=== PATIENT | male | born 1960 | race Caucasian/White ===

== ENCOUNTER 2023-12-30 11:40 | Outpatient (CLI) | payer BC, SELFPAY ==
--- NOTE | 2023-12-30 12:54 | ECG_ITS ---
Measurements Intervals [place] Rate: 90 P: -3 VT: 181 QRS: 12 QRSD: 97 T: 80 QT: 343 QTc: 391 Interpretive Statements SINUS RHYTHM POOR R. PROGRESSION BORDERLINE ECG SEE SCANNED COPY FOR SIGNATURE MTDD
[2023-12-30 13:08] LABS: Basophils Absolute Auto 0.2 K/mm3 (0.0-0.1); Basophils Percent Auto 1.1 % (0.2-1.2); Eosinophils Absolute Auto 0.5 K/mm3 (0-0.3); Eosinophils Percent Auto 3.2 % (0-4.4); Hematocrit 43.9 % (42.0-52.0); Hemoglobin 14.9 g/dL (14.0-18.0); Immature Granulocyte Absolute 0.11 K/mm3 (0.00-0.031); Immature Granulocyte Percent A 0.7 % (0-0.5); Lymphocytes Absolute Auto 5.83 K/mm3 (0.9-3.2); Lymphocytes Percent Auto 38.9 % (18.3-44.2); Mean Corpuscular HGB Conc 33.9 g/dl (32-36); Mean Corpuscular Hemoglobin 29.9 pg (26-34); Mean Platelet Volume 9.7 fl (7.4-10.4); Monocytes Absolute Auto 1.3 K/mm3 (0.1-0.6); Monocytes Percent Auto 8.7 % (2.6-8.5); Neutrophils Absolute Auto 7.1 K/mm3 (1.3-6.7); Neutrophils Percent Auto 47.4 % (45.5-73.1); Platelet Count Result 337 k/mm3 (150-375); Red Blood Count 4.99 M/mm3 (4.6-6.20); Red Cell Distribution Width 13.6 % (11.5-14.5)
[2023-12-30 13:20] LABS: Albumin Level 4.8 g/dL (3.5-5.1)
[2023-12-30 13:23] LABS: Anion Gap 10 mmol/L (4-12); Blood Urea Nitrogen 25 mg/dL (9-20); Calcium 10.3 mg/dL (8.4-10.2); Carbon Dioxide 27 mmol/L (22-30); Chloride 99 mmol/L (98-107); Estimated Glomerular Filt Rate > 60; Glucose 191 mg/dL (65-110); Potassium 3.9 mmol/L (3.4-5.0); Sodium 136 mmol/L (137-145); Urine Cotinine NEGATIVE
[2023-12-30 13:33] LABS: Hemoglobin A1C 7.2 % (<5.7)
[2023-12-30 13:55] LABS: Atypical Lymphocytes Present; Platelet Estimate Adequate (Adequate); Schistocytes None Seen
== END 2023-12-30 11:41 | disposition home or self-care (01) ==
PROVIDERS: Anesthesiology; PCP Internal Medicine Endocrinology, Diabetes & Metabolism; Visit Provider Orthopaedic Surgery
DX: M17.12 Unilateral primary osteoarthritis, left knee (principal); E11.9 Type 2 diabetes mellitus without complications; Z01.818 Encounter for other preprocedural examination
CPT/HCPCS: 36415; 80048; 80307; 82040; 83036; 85025; 93005

== ENCOUNTER 2024-01-13 01:39 | Day surgery (SDC) | payer BC, SELFPAY ==
[2023-12-30 11:54] VITALS: BMI 36.9
--- NOTE | 2023-12-30 12:17 | PC.NURSE ---
Report to the Outpatient Waiting Room, entrance under the green pavilion located off [facility], at time ___0600____ on date ___01/13/24____. Planned Procedure Time: __729 . Time changes happen often and if your time is changed the preop area will call you the afternoon before. - You and your visitor will be asked to self-screen and do not enter if you have any COVID symptoms. - A mask is optional within the hospital at this time. Patients may have clear liquids (water, carbonated beverages, clear teas, apple juice) until 3 hours prior to surgery ( 4:30 AM)with a maximum of 20 ounces. - No food from midnight until time of surgery - Infants may have breast milk until 4 hours before surgery, formula 6 hours prior to surgery. - Children will be allowed to drink immediately following surgery. If applicable, please bring a bottle or sippy cup to assist with drinking. Juice, water, soda, and popsicles are readily available. For infants on formula, please bring formula the day of surgery. Pacifiers are allowed. Take the following medications with a SIP of water the morning of surgery: _AMLODIPINE DO NOT STOP ANY OF YOUR OTHER PRESCRIPTION MEDICATIONS PRIOR TO SURGERY ?EXCEPT THE FOLLOWING Medications to discontinue per physician _DICLOFENAC PER DR MANJARREZ. HOLD ALL VITAMINS AND SUPPLEMENTS 3 DAYS PREOP.LAST DOSE01/09/24____ Please no make-up, nail korean, hairspray, perfume, deodorant, or body powder the day of surgery. No jewelry (including any body piercings) or valuables the day of surgery, leave them at home. Please take a shower or bath the night before, or the morning of, surgery with an antibacterial soap. Wear comfortable, loose fitting clothing. Children are encouraged to wear pajamas. - Jewelry must be removed prior to entering the operating room. Rings and piercings that are not removed may be cut off. - The hospital will not accept responsibility for valuables. - Please leave all valuables, including medications, at home the day of surgery. If you are going home after surgery, a licensed flatbed driver must drive you home. - NO public transportation without another adult if you receive anesthesia. - We recommend that an adult stay with you for 24 hours following discharge. - We also recommend that you do not drive, make important decision, drink alcoholic beverages, or take any drugs that were not prescribed by your health care provider for at least 24 hours after your discharge jared. Follow any additional instructions given to you from your surgeon. If you or anyone in your household have experienced Covid symptoms in the past week, please notify your surgeon or the nurse liaison at the phone number below for possible testing. VERBAL AND WRITTEN instructions given to __PATIENT and asked if any additional questions and then verbalized understanding. Patient advised to call surgeon office or pre surgery nurse liaison [phone] if any additional questions.
[2023-12-30 12:39] VITALS: BP 156/99; PULSE 88; RESP 18; TEMP 36.6; O2SAT 97
--- NOTE | 2024-01-09 10:22 | PM.IMHP ---
H&P: HPI History of Present Illness Date/Time: 01/09/24 10:22 Chief Complaint: Patient has arthritis and pain left knee. He has failed conservative treatment. He would like to proceed with total knee arthroplasty on the left. Review of Systems Musculoskeletal: Musculoskeletal: Reports arthralgias, Reports joint swelling and Reports stiffness [facility] Past Medical History Medical History Diabetes Hyperlipidemia Hypertension Surgical History Surgical History History of tonsillectomy Family History Family History Mother Diabetes mellitus Hypertension Father CHF (congestive heart failure) Social History Social History (Updated 12/05/23 @ 10:43 by Saira Short CMA) Years smoked: 42 Smoking status: Former smoker Tobacco type: cigarettes Smoking end date: 11/30/23 Additional smoking assessment comments: DENIES ANY FORM OF TOBACCO USE Alcohol intake: never Substance use type: does not use Do You Feel Safe in your Home?: Yes Lack of Transportation: No Lack of Food: Never True Current Housing: I Have Housing Concerned About Future Housing: No Difficulty Paying Gas/Electric Bills: No Difficulty Paying for Meds: No Currently Unemployed: No Education: Trade/Vocational Certificate Difficulty w/ Childcare or Family Care: No Living arrangements: alone Occupation/Education: occupation Additional occupation/education comments: [employer] Spiritual care concerns: No Meds Home Medications and Allergies Home Medications Medication Instructions Recorded Confirmed Type amlodipine 5 mg tablet 5 mg PO BID 11/06/23 12/30/23 History ascorbic acid (vitamin C) 1,000 mg 1 g PO DAILY 11/06/23 12/30/23 History tablet calcium 600 mg-D3 20 mcg-magnesium 1 tablet PO TID 11/06/23 12/30/23 History 40 wg-mmwcut-zgbb-zinc chew tablet diclofenac sodium 75 mg 75 mg PO BID 11/06/23 12/30/23 History tablet,delayed release glimepiride 4 mg tablet 4 mg PO QAM 11/06/23 12/30/23 History metformin 1,000 mg tablet,extended 1,000 mg PO BID 11/06/23 12/30/23 History release 24hr (osmotic) valsartan 320 1 tablet PO DAILY 11/06/23 12/30/23 History mg-hydrochlorothiazide 25 mg tablet vitamin A-vitamin D3 5,000 1 cap PO DAILY 11/06/23 12/30/23 History unit-400 unit capsule vitamin B complex 1 cap PO DAILY 11/06/23 12/30/23 History vitamin E (dl, acetate) 45 mg (100 45 mg PO DAILY 11/06/23 12/30/23 History unit) capsule cjmeryf-rgvvwpavh-qutm 333 mg-133 1 tablet PO DAILY 12/30/23 12/30/23 History mg-8.3 mg tablet coQ10 (ubiquinol) 100 mg capsule 100 mg PO BID 12/30/23 12/30/23 History glucosamine sulf dipot 1 cap PO BID 12/30/23 12/30/23 History chlr,msm,chond 550 mg-C 30 mg-carlos 1 mg capsule (Glucosamine Chondroitin) vitamin D3 1,250 mcg (50,000 1 cap PO TID 12/30/23 12/30/23 History unit)-vitamin K2 200 mcg capsule Allergies Allergy/AdvReac Type Severity Reaction Status Date / Time No Known Allergies Allergy Verified 12/30/23 11:55 Exam Narrative: On exam he has motion from about 3-110 degrees. Varus deformity. Grinding crepitus and pain. He walks with an antalgic gait. Eyes: General: appearance normal, both eyes and all related structures Neck: Neck: supple Resp: Effort & Inspection: normal respiratory effort Cardio: Rate: regular rate Rhythm: regular rhythm Assessment and Plan Assessment and plan (1) Osteoarthritis of knees, bilateral: Code(s): M17.0 - Bilateral primary osteoarthritis of knee Status: Acute Assessment and Plan: Patient has significant arthritis of both knees. He has failed conservative treatment. A like to proceed with total knee arthroplasty on the left. I have discussed this with him risks lorenzo
[2024-01-13] VITALS (15 sets, daily range): BP systolic 119–162; BP diastolic 67–94; PULSE 81–104; RESP 12–22; TEMP 35.7–37.2; O2SAT 90–99
--- NOTE | ~2024-01-13 | XR_ITS ---
EXAMINATION: [id number] DATE: 01/13/2024 10:48 INDICATION: Postoperative evaluation following left total knee arthroplasty. TECHNIQUE: Anteroposterior and lateral views of the left knee were obtained. COMPARISON: 11/06/2023 FINDINGS: total knee arthroplasty with patellar resurfacing appears well seated and in near anatomic alignment. No fractures identified. Midline anterior skin sarah and expected postoperative subcutaneous and intra-articular gas. Unchanged small heterotopic ossicle in the subcutaneous fat anterior to the uppe r pole of the patella. IMPRESSION: 1. Left total knee arthroplasty, negative for postoperative purposes. Reviewed, dictated and finalized at location A.
[2024-01-13] MEDS: ACETAMINOPHEN 500 MG TABLET 1000 MG PO (06:24)
[2024-01-13] MEDS: LACTATED RINGERS 1,000 ML 30 ML IV CONT ×2 (06:36→10:29)
[2024-01-13 06:42] LABS: Glucose Point of Care 201 mg/dl (65-105)
--- NOTE | 2024-01-13 06:59 | WPDHPUPDATE1 ---
History and Physical Update Update Date/Time: 01/13/24 06:59 History and Physical has been reviewed, including an updated exam of the patient. There are NO changes in the patient's condition. Risks, benefits, and alternatives have been discussed and questions answered. Patient agrees to proceed with procedure.
[2024-01-13] MEDS: TRANEXAMIC ACID 1,000MG/ISO100 1,000 MG/100 ML BAG 200 MG IVPB (07:07)
--- NOTE | 2024-01-13 07:30 | WPDANESEPPF ---
Anes - Initial Pre Proc Eval Procedure: Operation Date: 01/13/24 07:30 Proposed Procedures p Left Total Knee Arthroplasty - Robert Grace MD Date/Time: 01/13/24 07:30 Surgeon: Robert Grace MD Pre Op Diagnosis: oa left knee Patient Data Age: 63 Gender: M Height: 1.78 m Weight: 116.1 kg Last Vital Signs Temp 96.3 F L 01/13/24 06:53 Pulse 103 H 01/13/24 06:53 Resp 16 01/13/24 06:53 BP 162/94 H 01/13/24 06:53 Pulse Ox 95 01/13/24 06:53 O2 Del Method Room Air 01/13/24 06:53 Allergies Allergy/AdvReac Type Severity Reaction Status Date / Time No Known Allergies Allergy Verified 01/13/24 06:10 Home Medications Medication Instructions Recorded Confirmed Type amlodipine 5 mg tablet 5 mg PO BID 11/06/23 01/13/24 History ascorbic acid (vitamin C) 1,000 mg 1 g PO DAILY 11/06/23 01/13/24 History tablet calcium 600 mg-D3 20 mcg-magnesium 1 tablet PO TID 11/06/23 01/13/24 History 40 gl-dpnsew-kymm-zinc chew tablet diclofenac sodium 75 mg 75 mg PO BID 11/06/23 01/13/24 History tablet,delayed release glimepiride 4 mg tablet 4 mg PO QAM 11/06/23 01/13/24 History metformin 1,000 mg tablet,extended 1,000 mg PO BID 11/06/23 01/13/24 History release 24hr (osmotic) valsartan 320 1 tablet PO DAILY 11/06/23 01/13/24 History mg-hydrochlorothiazide 25 mg tablet vitamin A-vitamin D3 5,000 1 cap PO DAILY 11/06/23 01/13/24 History unit-400 unit capsule vitamin B complex 1 cap PO DAILY 11/06/23 01/13/24 History vitamin E (dl, acetate) 45 mg (100 45 mg PO DAILY 11/06/23 01/13/24 History unit) capsule gvihqhq-sgskzbgqh-bnci 333 mg-133 1 tablet PO DAILY 12/30/23 01/13/24 History mg-8.3 mg tablet coQ10 (ubiquinol) 100 mg capsule 100 mg PO BID 12/30/23 01/13/24 History glucosamine sulf dipot 1 cap PO BID 12/30/23 01/13/24 History chlr,msm,chond 550 mg-C 30 mg-carlos 1 mg capsule (Glucosamine Chondroitin) vitamin D3 1,250 mcg (50,000 1 cap PO TID 12/30/23 01/13/24 History unit)-vitamin K2 200 mcg capsule rivaroxaban 10 mg tablet (Xarelto) 10 mg PO DAILY PE prophylaxis s/p 01/10/24 Rx total joint replacement 10 days #10 tabs Laboratory Tests 01/13/24 01/13/24 06:39 07:08 POC Capillary Glucose 201 H mg/dl (65-105) Blood Type Pending Antibody Screen Pending Patient hx anesthesia problems: none Family hx anesthesia problems: none Results Review: All pre-operative results and documents have been reviewed as part of the pre-operative evaluation. [facility] Past Medical History Medical History Diabetes Hyperlipidemia Hypertension Surgical History Surgical History History of tonsillectomy Family History Family History Mother Diabetes mellitus Hypertension Father CHF (congestive heart failure) Social History Social History Years smoked: 42 Smoking status: Former smoker Tobacco type: cigarettes Smoking end date: 11/30/23 Additional smoking assessment comments: DENIES ANY FORM OF TOBACCO USE Alcohol intake: never Substance use type: does not use Do You Feel Safe in your Home?: Yes Lack of Transportation: No Lack of Food: Never True Current Housing: I Have Housing Concerned About Future Housing: No Difficulty Paying Gas/Electric Bills: No Difficulty Paying for Meds: No Currently Unemployed: No Education: Trade/Vocational Certificate Difficulty w/ Childcare or Family Care: No Living arrangements: alone Occupation/Education: occupation Additional occupation/education comments: [employer] Spiritual care concerns: No Anes - Eval Final PreProcedure Day of Procedure 01/13/24 07:30 Patient weight: normal Heart: r
--- NOTE | 2024-01-13 07:31 | WPDANESPNB ---
Anes - Peripheral Nerve Block Date/Time: 01/13/24 07:31 I have discussed with the patient/family/POA the placement of a peripheral nerve block for post-operative pain management, including associated risks, benefits, complications, and side effects. Alternative methods of post-operative analgesia were detailed. Questions were solicited and answers provided to the satisfaction of the patient/family/POA. Time-Out: A pre-procedural Time-Out was completed immediately before starting the procedure and confirmed: Patient Identification, Site, Procedure, Patient Position and the Availability of Requisite Equipment. Clinical Indications: Acute post-operative pain management requested by the operative surgeon. Nerve Block Insertion Note Anes-nerve block: adductor canal left Patient position: supine Skin prep: chlorhexidine Needle: 22 gauge, stimulating, insulated echogenic needle. Needle length: 80 mm Technique: ultrasound Injectate: other (Bupiv 0.5% 30 mls. ) Observations: tolerated well Complications: none Procedure start time:: 724 Procedure end time:: 728
[2024-01-13] MEDS: ceFAZolin 2 GM/D5W 50 ML 2 GM/50 ML BAG IVPB ×3 (07:32→23:46)
[2024-01-13] MEDS: SODIUM CHLORIDE 0.9% IV 37.7 ML, MORPHINE SULFATE INJ (*CRX) 2 MG, ROPivacaine HCL 1% 2... INFILTRATE (08:12)
--- NOTE | 2024-01-13 10:00 | P.OP_ITS ---
Procedure Note - Detailed Date of Procedure 01/13/24 Pre-op Diagnosis Osteoarthritis left knee Post-op Diagnosis Same Procedure Performed LEFT total knee arthroplasty Surgeon Robert Grace MD Anesthesia General Findings Fixed deformity and arthritis Description of Procedure The patient was brought to operating room #9. A general anesthetic was administered. Placed on the operating table and sterilely prepped and draped in usual manner. A longitudinal incision was made. Tourniquet inflated to 300 mmHg for a total of 90 minutes. Dissection was carried down to the fascia. Medial parapatellar incision was made and the patella subluxated laterally. P atella cut from 25 to 16 mm and sized for a 34 mm button. The tibia was cut perpendicular to the long axis and femur cut in 5 degrees of valgus. Because of the fixed varus deformity and significant malalignment medial release was done. Went down at least a centimeter and a half medially all way to the posterior medial aspect the tibia. I also osteotomized some of the medial tibial plateau. A 65mm femur trialed. 67 tibia was felt to fit the best. The soft tissues balanced, hemostasis obtained. All [address], 67 tibia, 65 femur, 34 mm patella. At this point he tended to open more laterally than the trials had initially indicated so I removed the femur placed a posterior stabilized femur. He was then reduced with a 10. Liner stabilized plus. And 10 stabilized plus mm poly. Motion was 0-125 degrees with good stability in both flexion and extension. The wound was closed with #2 Vicryl, 2-0 Vicryl and sarah. [employer] Estimated Blood Loss 200 Drains No Packing No Pathology None sent Complications No immediate complications Condition Stable Disposition PACU [facility] Billing Surgery - Charge Forward: Surgery Billing (92091 Total Knee)
[2024-01-13 10:43] LABS: Glucose Point of Care 246 mg/dl (65-105)
[2024-01-13] MEDS: fentaNYL CITRATE INJ (*CRX) 100 MCG/2 ML VIAL 25 MCG IV PUSH ×8 (10:50→11:45)
[2024-01-13] MEDS: INSULIN HUMAN REGULAR (*BKC) 100 UNITS/ML SUB-Q (10:55)
[2024-01-13] MEDS: oxyCODONE HCL (*CRX) 5 MG TAB IR PO (11:32)
--- NOTE | 2024-01-13 11:57 | ADMGEN ---
This patient, Paul Mireles, was admitted to -. Patient/family oriented to hospital policies and general routines including ID bracelet, bed and alarms, visiting hours, pain management, procedures, bathroom and other care routines, personal items, smoking policy, room service/diet, and visiting hours. Information on how to activate the Rapid Response Team has been discussed. Patient/Family are encouraged to report perceived risks to care and to ask questions if they do not understand what they are told or what they should do.
[2024-01-13] MEDS: SODIUM CHLORIDE 0.9% IV 1,000 ML 125 ML IV CONT (12:17)
[2024-01-13] MEDS: amLODIPine BESYLATE 5 MG TABLET PO (16:58)
[2024-01-13] MEDS: CELECOXIB 200 MG CAPSULE PO (16:58)
[2024-01-13] MEDS: RIVAROXABAN 10 MG TABLET PO (16:59)
[2024-01-13] MEDS: SENNA/DOCUSATE SODIUM TABLET 2 TAB PO (16:59)
[2024-01-13] MEDS: HYDROcodone/acetaminophen (*CRX) 7.5-325 MG TABLET 1 TAB PO (16:59)
[2024-01-13 17:00] LABS: Glucose Point of Care 186 mg/dl (65-105)
[2024-01-13] MEDS: metFORMIN HCL XR 500 MG TAB.SR.24H 1000 MG PO (17:21)
[2024-01-13] MEDS: FAMOTIDINE 20 MG TABLET PO (20:08)
[2024-01-13] MEDS: HYDROcodone/acetaminophen (*CRX) 5-325 MG TABLET 1 TAB PO (20:08)
[2024-01-13 20:29] LABS: Glucose Point of Care 223 mg/dl (65-105)
[2024-01-14] MEDS: CYCLOBENZAPRINE HCL 10 MG TABLET PO (00:27)
[2024-01-14] MEDS: HYDROcodone/acetaminophen (*CRX) 7.5-325 MG TABLET 1 TAB PO (00:27)
[2024-01-14 01:36] VITALS: BP 157/79; PULSE 100; RESP 26; TEMP 36.7; O2SAT 96
[2024-01-14 05:00] VITALS: BP 182/88
[2024-01-14 05:15] VITALS: BP 182/88; PULSE 106; RESP 16; TEMP 36.9; O2SAT 96
[2024-01-14 05:38] LABS: Basophils Absolute Auto 0.1 K/mm3 (0.0-0.1); Basophils Percent Auto 0.5 % (0.2-1.2); Eosinophils Percent Auto 0.1 % (0-4.4); Hemoglobin 12.1 g/dL (14.0-18.0); Immature Granulocyte Absolute 0.05 K/mm3 (0.00-0.031); Immature Granulocyte Percent A 0.4 % (0-0.5); Lymphocytes Absolute Auto 1.83 K/mm3 (0.9-3.2); Lymphocytes Percent Auto 14.2 % (18.3-44.2); Mean Corpuscular HGB Conc 33.6 g/dl (32-36); Mean Corpuscular Hemoglobin 30.3 pg (26-34); Mean Corpuscular Volume 90.2 fl (80-100); Mean Platelet Volume 9.9 fl (7.4-10.4); Monocytes Absolute Auto 1.5 K/mm3 (0.1-0.6); Monocytes Percent Auto 11.5 % (2.6-8.5); Neutrophils Absolute Auto 9.5 K/mm3 (1.3-6.7); Neutrophils Percent Auto 73.3 % (45.5-73.1); Platelet Count Result 268 k/mm3 (150-375); Red Blood Count 3.99 M/mm3 (4.6-6.20); Red Cell Distribution Width 13.6 % (11.5-14.5); White Blood Count 12.9 K/mm3 (4.5-10.0)
[2024-01-14 05:47] LABS: Anion Gap 5 mmol/L (4-12); Blood Urea Nitrogen 18 mg/dL (9-20); Calcium 8.8 mg/dL (8.4-10.2); Carbon Dioxide 26 mmol/L (22-30); Chloride 99 mmol/L (98-107); Estimated CRCL calculation 86 ml/min; Estimated Glomerular Filt Rate > 60; Glucose 235 mg/dL (65-110); Potassium 4.2 mmol/L (3.4-5.0); Sodium 130 mmol/L (137-145)
[2024-01-14] MEDS: hydrALAZINE HCL 20 MG/ML VIAL 10 MG IV PUSH (05:47)
[2024-01-14] MEDS: HYDROcodone/acetaminophen (*CRX) 5-325 MG TABLET 1 TAB PO ×2 (05:49→08:39)
--- NOTE | 2024-01-14 06:41 | PM.PNORT ---
Progress Note: A&P Assessment and Plan (1) Osteoarthritis of knees, bilateral: Code(s): M17.0 - Bilateral primary osteoarthritis of knee Status: Acute Assessment and Plan: Patient is status post knee replacement left. Overall he is doing well. He had a large preoperative contracture before surgery. About 15 degree going to be difficult to get it all the way street he did surgery for obstructive release which and hard. On he can be dismissed today I will see him back weeks. (2) History of knee replacement procedure of left knee: Code(s): Z96.652 - Presence of left artificial knee joint Status: Acute Subjective Subjective Date/Time Seen: 01/14/24 06:41 Post Op day: 1 Principal diagnosis: Left total knee arthroplasty for osteoarthritis left knee Review of Systems Musculoskeletal: Musculoskeletal: Reports arthralgias, Reports joint swelling and Reports stiffness Exam Narrative: Patient is wiggling his toes. He is able to bear weight on his knee. He holds it lacking about 10? of straightening. I told him I got full extension during surgery. Objective Data Vital Signs Vital Signs: Vital Signs - 24 hr 01/13/24 06:53 01/13/24 10:29 01/13/24 10:43 Temperature 96.3 F L 97.3 F L Pulse Rate 103 H 104 H 100 Respiratory Rate 16 22 H 15 Blood Pressure 162/94 H 151/89 H 137/67 Pulse Oximetry 95 99 94 Oxygen Delivery Room Air Simple Face Mask Room Air Oxygen Flow Rate 10 01/13/24 10:45 01/13/24 11:00 01/13/24 11:15 Temperature Pulse Rate 96 83 88 Respiratory Rate 18 12 18 Blood Pressure 149/73 H 145/70 H 128/72 Pulse Oximetry 94 90 98 Oxygen Delivery Room Air Nasal Cannula Nasal Cannula Oxygen Flow Rate 2 2 01/13/24 11:30 01/13/24 11:45 01/13/24 12:20 Temperature Pulse Rate 91 84 Respiratory Rate 21 H 18 Blood Pressure 141/72 H 134/76 Pulse Oximetry 98 98 98 Oxygen Delivery Nasal Cannula Nasal Cannula Nasal Cannula Oxygen Flow Rate 2 2 2 01/13/24 11:51 01/13/24 12:06 01/13/24 12:36 Temperature 97.5 F L 97.1 F L 98.1 F Pulse Rate 88 81 85 Respiratory Rate 16 16 16 Blood Pressure 135/73 138/74 136/71 Pulse Oximetry 96 95 96 Oxygen Delivery Oxygen Flow Rate 01/13/24 13:36 01/13/24 18:19 01/13/24 20:25 Temperature 97.8 F 99.0 F 97.1 F L Pulse Rate 89 96 96 Respiratory Rate 16 16 16 Blood Pressure 119/94 H 151/77 H 147/79 H Pulse Oximetry 95 96 96 Oxygen Delivery Oxygen Flow Rate 01/13/24 20:00 01/14/24 01:36 01/14/24 05:00 Temperature 98.1 F Pulse Rate 100 Respiratory Rate 26 H Blood Pressure 157/79 H 182/88 H Pulse Oximetry 96 Oxygen Delivery Room Air Oxygen Flow Rate 01/14/24 05:15 Temperature 98.4 F Pulse Rate 106 H Respiratory Rate 16 Blood Pressure 182/88 H Pulse Oximetry 96 Oxygen Delivery Oxygen Flow Rate Intake/Output Intake/Output: Intake & Output 01/11/24 01/12/24 01/13/24 01/14/24 23:59 23:59 23:59 23:59 Intake Total 1540 600 Output Total 500 Balance 1540 100 Meds/Results Medications: Active Medications Generic Name Dose Route Start Last Admin Trade Name Freq PRN Reason Stop Dose Admin Hydrocodone Bitart/Acetaminophen 1 tab 01/13/24 11:51 01/14/24 00:27 Hydrocodone/Acetaminophen (*Crx) 7.5-325 Mg Tablet PO 1 tab Q6H PRN Administration Pain Rated 7-10 Hydrocodone Bitart/Acetaminophen 1 tab 01/13/24 11:51 01/14/24 05:49 Hydrocodone/Acetaminophen (*Crx) 5-325 Mg Tablet PO 1 tab Q4H PRN Administration Pain Rated 4-6 Amlodipine Besylate 5 mg 01/13/24 17:00 01/13/24 16:58 Amlodipine Besylate 5 Mg Tablet PO 5 mg BID BRADLEY Administration Celecoxib 200 mg 01/13/24 17:00 01/13/24 16:58 Celecoxib 200 Mg Capsule PO 200 mg BIDWM BRADLEY Administration Cyclobenzaprine HCl 10 mg 01/13/24 11:51 01/14/24 00:27 Cyclobenzaprine Hcl 10 Mg Tablet PO 10 mg Q8H PRN Administration Spasms Diphenhydramine HCl 25 mg
--- NOTE | 2024-01-14 06:43 | PM.DS ---
DS: Admitting Diagnosis Discharge Date 01/13/24 Admitting Diagnosis Osteoarthritis left knee admitted for total knee arthroplasty. DS: Discharge Diagnosis Discharge Diagnosis (1) History of knee replacement procedure of left knee: Code(s): Z96.652 - Presence of left artificial knee joint Status: Acute (2) Osteoarthritis of knees, bilateral: Code(s): M17.0 - Bilateral primary osteoarthritis of knee Status: Acute DS: Summary Hospital Course Hospital Course: Patient underwent total knee arthroplasty for left knee arthritis. He had significant varus deformity and a flexion contraction. I was able to realign all the problems during surgery. However in bed today, he's holding his leg in about 10? of lacking about 10? of extension. I told him that he really needs to push at the maintain is straightening. I will see him back in 2 weeks. Status at Discharge Functional status at discharge: uses cane/walker Time Spent with Patient Time attestation: Total time spent providing and/or coordinating discharge services: Exam Narrative: Neurologically the patient appears to be intact. A hold his leg in about 10? of flexion. He is able to bear weight on his knee. DS: Data Data Completed and Pending Labs on day of discharge: Labs from last 24 hours 01/14/24 01/13/24 01/13/24 05:06 20:24 16:58 WBC 12.9 H RBC 3.99 L Hgb 12.1 L Hct 36.0 L MCV 90.2 MCH 30.3 MCHC 33.6 RDW 13.6 Plt Count 268 MPV 9.9 Immature Gran % (Auto) 0.4 Neut % (Auto) 73.3 H Lymph % (Auto) 14.2 L [place] % (Auto) 11.5 H Eos % (Auto) 0.1 Baso % (Auto) 0.5 Lymph # (Auto) 1.83 [place] # (Auto) 1.5 H Eos # (Auto) 0.0 Baso # (Auto) 0.1 Abs Immat Gran (auto) 0.05 H Absolute Neuts (auto) 9.5 H Absolute Nucleated RBC 0.000 Nucleated RBC % 0.0 Sodium 130 L Potassium 4.2 Chloride 99 Carbon Dioxide 26 Anion Gap 5 BUN 18 Creatinine 1.00 Estim Creat Clear Calc 86 Estimated GFR > 60 Glucose 235 H POC Capillary Glucose 223 H 186 H Calcium 8.8 Blood Type Antibody Screen 01/13/24 01/13/24 10:39 07:08 WBC RBC Hgb Hct MCV MCH MCHC RDW Plt Count MPV Immature Gran % (Auto) Neut % (Auto) Lymph % (Auto) [place] % (Auto) Eos % (Auto) Baso % (Auto) Lymph # (Auto) [place] # (Auto) Eos # (Auto) Baso # (Auto) Abs Immat Gran (auto) Absolute Neuts (auto) Absolute Nucleated RBC Nucleated RBC % Sodium Potassium Chloride Carbon Dioxide Anion Gap BUN Creatinine Estim Creat Clear Calc Estimated GFR Glucose POC Capillary Glucose 246 H Calcium Blood Type A Positive Antibody Screen Negative Discharge Plan Discharge Patient Disposition: Home, Self-Care Discharge Instructions: Dr. Robert Grace M.D [address] [place] [id number] POST-OPERATIVE DISCHARGE INSTRUCTIONS TOTAL KNEE ARTHROPLASTY 1. When resting, do not rest in the chair.When resting, lie on your back, with back flat on the couch or bed, with leg elevated above heart to minimize swelling. You may put a pillow under your head. . Significant swelling could indicate a blood clot and if this occurs call the office (or go to the ER) to have a venous ultrasound. Therefore, do not rest in a chair. 2. At least five times a day spend several minutes stretching your knee into flexion while sitting in the chair and also stretching your knee out straight The abilities to bend your knee fulling and straighten your knee fully are two most important knee functions to focus on during your recovery. 3. It is ok to sit in chair to eat, use the toilet and receive a guest and to do your stretching exercises, but, sitting in a chair will cause your leg to swell. Therefore, avoid additional time sitting in the chair. and don't rest in the chair. 4. Wound Care:
[2024-01-14 06:44] VITALS: BP 166/87
[2024-01-14] MEDS: CELECOXIB 200 MG CAPSULE PO (08:37)
[2024-01-14] MEDS: ceFAZolin 2 GM/D5W 50 ML 2 GM/50 ML BAG IVPB (08:37)
[2024-01-14] MEDS: amLODIPine BESYLATE 5 MG TABLET PO (08:37)
[2024-01-14] MEDS: FAMOTIDINE 20 MG TABLET PO (08:38)
[2024-01-14] MEDS: VALSARTAN 160 MG TABLET 320 MG PO (08:38)
[2024-01-14] MEDS: metFORMIN HCL XR 500 MG TAB.SR.24H 1000 MG PO (08:38)
[2024-01-14] MEDS: GLIMEPIRIDE 2 MG TABLET 4 MG PO (08:38)
[2024-01-14] MEDS: hydroCHLOROthiazide 25 MG TABLET PO (08:38)
[2024-01-14] MEDS: VITAMIN E 100 UNIT CAPSULE PO (08:39)
[2024-01-14] MEDS: VITAMIN B COMPLEX CAPSULE 1 CAP PO (08:42)
[2024-01-14] MEDS: ASCORBIC ACID 500 MG TABLET 1000 MG PO (08:42)
[2024-01-14] MEDS: INSULIN ASPART (*BKC) 100 UNITS/ML SUB-Q (08:43)
--- NOTE | 2024-01-14 08:55 | P.PNAN_ITS ---
Anes - Prog Note Post-Op Date/Time: 01/14/24 08:55 Cardiovascular status: normal Respiratory status: normal Airway patency: baseline Mental status: baseline Post-Op hydration status: normal Vital Signs: Last Vital Signs Temp 36.9 C 01/14/24 05:15 Pulse 106 H 01/14/24 05:15 Resp 16 01/14/24 05:15 BP 166/87 H 01/14/24 06:44 Pulse Ox 96 01/14/24 05:15 O2 Del Method Room Air 01/13/24 20:00 O2 Flow Rate 2 01/13/24 12:20 Pain Score (VAS): 12/31 I/O: Intake & Output 01/13/24 01/14/24 01/14/24 23:59 07:59 15:59 Intake Total 1390 600 240 Output Total 500 Balance 1390 100 240 Laboratory Tests 01/14/24 05:06 01/14/24 05:06 01/13/24 01/13/24 01/13/24 10:39 16:58 20:24 WBC RBC Hgb Hct MCV MCH MCHC RDW Plt Count MPV Immature Gran % (Auto) Neut % (Auto) Lymph % (Auto) [place] % (Auto) Eos % (Auto) Baso % (Auto) Lymph # (Auto) [place] # (Auto) Eos # (Auto) Baso # (Auto) Abs Immat Gran (auto) Absolute Neuts (auto) Absolute Nucleated RBC Nucleated RBC % Sodium Potassium Chloride Carbon Dioxide Anion Gap BUN Creatinine Estim Creat Clear Calc Estimated GFR Glucose POC Capillary Glucose 246 H 186 H 223 H Calcium 01/14/24 05:06 WBC 12.9 H RBC 3.99 L Hgb 12.1 L Hct 36.0 L MCV 90.2 MCH 30.3 MCHC 33.6 RDW 13.6 Plt Count 268 MPV 9.9 Immature Gran % (Auto) 0.4 Neut % (Auto) 73.3 H Lymph % (Auto) 14.2 L [place] % (Auto) 11.5 H Eos % (Auto) 0.1 Baso % (Auto) 0.5 Lymph # (Auto) 1.83 [place] # (Auto) 1.5 H Eos # (Auto) 0.0 Baso # (Auto) 0.1 Abs Immat Gran (auto) 0.05 H Absolute Neuts (auto) 9.5 H Absolute Nucleated RBC 0.000 Nucleated RBC % 0.0 Sodium 130 L Potassium 4.2 Chloride 99 Carbon Dioxide 26 Anion Gap 5 BUN 18 Creatinine 1.00 Estim Creat Clear Calc 86 Estimated GFR > 60 Glucose 235 H POC Capillary Glucose Calcium 8.8 Post-procedural complaints: none Patient Feedback: Patient satisfied with anesthetic care.
[2024-01-14 16:22] LABS: Glucose Point of Care 254 mg/dl (65-105)
== END 2024-01-14 12:05 | disposition home or self-care (01) ==
LOC: ANHSURGERY 05:51 → ANH2MED 12:09
PROVIDERS: PCP Internal Medicine Endocrinology, Diabetes & Metabolism; Visit Provider Orthopaedic Surgery
PROC: (CPT 27447; principal; 2024-01-13 07:30)
DX: M17.12 Unilateral primary osteoarthritis, left knee (principal); G89.18 Other acute postprocedural pain; I10 Essential (primary) hypertension; E11.9 Type 2 diabetes mellitus without complications; E78.5 Hyperlipidemia, unspecified; Z87.891 Personal history of nicotine dependence; Z79.84 Long term (current) use of oral hypoglycemic drugs
CPT/HCPCS: 27447; 64447; 36415; 73560; 80048; 82948; 85025; 86850; 86900; 86901; 97110; 97116; 97161; 97165; 97530; 97535; A9270; C1713; C1776; J0171; J0330; J0360; J0690; J1170; J1815; J1885; J2250; J2270; J2371; J2405; J2704; J2795; J3010; J7030; J7120

== ENCOUNTER 2024-04-08 12:10 | Outpatient (CLI) | payer BC, OTHER, SELFPAY ==
[2024-04-08 13:05] LABS: Basophils Absolute Auto 0.1 K/mm3 (0.0-0.1); Basophils Percent Auto 0.7 % (0.2-1.2); Eosinophils Absolute Auto 0.4 K/mm3 (0-0.3); Eosinophils Percent Auto 3.8 % (0-4.4); Hematocrit 44.3 % (42.0-52.0); Hemoglobin 14.8 g/dL (14.0-18.0); Immature Granulocyte Absolute 0.05 K/mm3 (0.00-0.031); Immature Granulocyte Percent A 0.4 % (0-0.5); Lymphocytes Absolute Auto 5.07 K/mm3 (0.9-3.2); Lymphocytes Percent Auto 43.3 % (18.3-44.2); Mean Corpuscular HGB Conc 33.4 g/dl (32-36); Mean Corpuscular Hemoglobin 29.8 pg (26-34); Mean Corpuscular Volume 89.3 fl (80-100); Mean Platelet Volume 9.8 fl (7.4-10.4); Monocytes Absolute Auto 1.1 K/mm3 (0.1-0.6); Monocytes Percent Auto 9.3 % (2.6-8.5); Neutrophils Percent Auto 42.5 % (45.5-73.1); Platelet Count Result 312 k/mm3 (150-375); Red Blood Count 4.96 M/mm3 (4.6-6.20); Red Cell Distribution Width 12.8 % (11.5-14.5); White Blood Count 11.7 K/mm3 (4.5-10.0)
[2024-04-08 13:15] LABS: Albumin Level 4.7 g/dL (3.5-5.1)
[2024-04-08 13:19] LABS: Anion Gap 12 mmol/L (4-12); Blood Urea Nitrogen 26 mg/dL (9-20); Calcium 9.3 mg/dL (8.4-10.2); Carbon Dioxide 27 mmol/L (22-30); Chloride 100 mmol/L (98-107); Estimated Glomerular Filt Rate > 60; Glucose 302 mg/dL (65-110); Potassium 3.8 mmol/L (3.4-5.0); Sodium 139 mmol/L (137-145)
[2024-04-08 13:25] LABS: Urine Cotinine NEGATIVE
[2024-04-08 14:02] LABS: Hemoglobin A1C 8.1 % (<5.7)
== END 2024-04-08 12:11 | disposition home or self-care (01) ==
PROVIDERS: Anesthesiology; PCP Internal Medicine Endocrinology, Diabetes & Metabolism; Visit Provider Orthopaedic Surgery
DX: M17.11 Unilateral primary osteoarthritis, right knee (principal); E11.9 Type 2 diabetes mellitus without complications; Z01.818 Encounter for other preprocedural examination
CPT/HCPCS: 36415; 80048; 80307; 82040; 83036; 85025; 86850; 86900; 86901

== ENCOUNTER 2024-07-30 11:30 | Outpatient (CLI) | payer BC, SELFPAY ==
[2024-07-30 12:08] LABS: Basophils Absolute Auto 0.1 K/mm3 (0.0-0.1); Basophils Percent Auto 0.9 % (0.2-1.2); Eosinophils Absolute Auto 0.6 K/mm3 (0-0.3); Eosinophils Percent Auto 4.7 % (0-4.4); Hematocrit 48.6 % (42.0-52.0); Immature Granulocyte Absolute 0.05 K/mm3 (0.00-0.031); Immature Granulocyte Percent A 0.4 % (0-0.5); Lymphocytes Absolute Auto 4.37 K/mm3 (0.9-3.2); Mean Corpuscular HGB Conc 32.9 g/dl (32-36); Mean Corpuscular Hemoglobin 29.9 pg (26-34); Mean Corpuscular Volume 90.7 fl (80-100); Mean Platelet Volume 9.5 fl (7.4-10.4); Monocytes Absolute Auto 0.9 K/mm3 (0.1-0.6); Monocytes Percent Auto 7.4 % (2.6-8.5); Neutrophils Absolute Auto 5.9 K/mm3 (1.3-6.7); Neutrophils Percent Auto 49.6 % (45.5-73.1); Platelet Count Result 314 k/mm3 (150-375); Red Blood Count 5.36 M/mm3 (4.6-6.20); Red Cell Distribution Width 12.8 % (11.5-14.5); White Blood Count 11.8 K/mm3 (4.5-10.0)
[2024-07-30 12:16] LABS: Albumin Level 4.7 g/dL (3.5-5.1)
[2024-07-30 12:19] LABS: Anion Gap 10 mmol/L (4-12); Blood Urea Nitrogen 23 mg/dL (9-20); Calcium 9.1 mg/dL (8.4-10.2); Carbon Dioxide 27 mmol/L (22-30); Chloride 101 mmol/L (98-107); Estimated Glomerular Filt Rate > 60; Glucose 161 mg/dL (65-110); Sodium 138 mmol/L (137-145)
[2024-07-30 12:21] LABS: Urine Cotinine NEGATIVE
[2024-07-30 12:32] LABS: Hemoglobin A1C 6.9 % (<5.7)
[2024-07-30 13:21] LABS: MRSA (PCR) NOT DETECTED (NOT DETECTE)
== END 2024-07-30 11:31 | disposition home or self-care (01) ==
LOC: ANHSURGERY 11:34
PROVIDERS: Anesthesiology; PCP Internal Medicine Endocrinology, Diabetes & Metabolism; Visit Provider Orthopaedic Surgery
DX: M17.11 Unilateral primary osteoarthritis, right knee (principal); E11.9 Type 2 diabetes mellitus without complications; Z01.818 Encounter for other preprocedural examination
CPT/HCPCS: 36415; 80048; 80307; 82040; 83036; 85025; 86850; 86900; 86901; 87641

== ENCOUNTER 2024-08-10 00:25 | Day surgery (SDC) | payer BC, SELFPAY ==
--- NOTE | 2024-04-07 15:15 | PC.NURSE ---
Report to the Outpatient Waiting Room, entrance under the green pavilion located off [facility], at time _6:00 AM on date __04/13/24 . Planned Procedure Time: __7:30 AM . Time changes happen often and if your time is changed the preop area will call you the afternoon before. - You and your visitor will be asked to self-screen and do not enter if you have any COVID symptoms. - A mask is optional within the hospital at this time. Patients may have clear liquids (water, carbonated beverages, clear teas, apple juice) until 3 hours prior to surgery( 4:30 AM) with a maximum of 20 ounces. - No food from midnight until time of surgery - Infants may have breast milk until 4 hours before surgery, infant formula 6 hours prior to surgery. - Children will be allowed to drink immediately following surgery. If applicable, please bring a bottle or sippy cup to assist with drinking. Juice, water, soda, and popsicles are readily available. For infants on formula, please bring formula the day of surgery. Pacifiers are allowed. Take the following medications with a SIP of water the morning of surgery: __AMLODIPINE DO NOT STOP ANY OF YOUR OTHER PRESCRIPTION MEDICATIONS PRIOR TO SURGERY ?EXCEPT THE FOLLOWING Medications to discontinue per physician _PT STATES HOLD ALL VITAMINS AND SUPPLEMENTS 5 DAYS PRE OP PER DR MANJARREZ. LAST DOSE 04/05/24. HOLD DICLOFENAC 3 DAYS PRE OP PER DR MANJARREZ LAST DOSE 04/09/24 Please no make-up, nail ecuadorean, hairspray, perfume, deodorant, or body powder the day of surgery. No jewelry (including any body piercings) or valuables the day of surgery, leave them at home. Please take a shower or bath the night before, or the morning of, surgery with an antibacterial soap. Wear comfortable, loose fitting clothing. Children are encouraged to wear pajamas. - Jewelry must be removed prior to entering the operating room. Rings and piercings that are not removed may be cut off. - The hospital will not accept responsibility for valuables. - Please leave all valuables, including medications, at home the day of surgery. If you are going home after surgery, a licensed seasonal driver must drive you home. - NO public transportation without another adult if you receive anesthesia. - We recommend that an adult stay with you for 24 hours following discharge. - We also recommend that you do not drive, make important decision, drink alcoholic beverages, or take any drugs that were not prescribed by your health care provider for at least 24 hours after your discharge time. Follow any additional instructions given to you from your surgeon. If you or anyone in your household have experienced Covid symptoms in the past week, please notify your surgeon or the nurse liaison at the phone number below for possible testing. Telephone instructions given to _PATIENT and asked if any additional questions and then verbalized understanding. Patient advised to call surgeon office or pre surgery nurse liaison [phone] if any additional questions.
[2024-04-07 15:26] VITALS: BMI 36.6
--- NOTE | 2024-04-09 08:30 | P.HP_ITS ---
H&P: HPI History of Present Illness Date/Time: 04/09/24 08:30 Chief Complaint: Degenerative osteoarthritis right knee. Narrative: Patient has osteoarthritis right knee. He has failed conservative treatment like to consider knee replacement surgery. Review of Systems Musculoskeletal: Musculoskeletal: Reports arthralgias, Reports joint swelling and Reports stiffness [facility] Past Medical History Medical History Diabetes Hyperlipidemia Hypertension Surgical History Surgical History (Updated 02/25/24 @ 10:23 by Angeles Andrew CMA) History of left knee replacement History of tonsillectomy Family History Family History Mother Diabetes mellitus Hypertension Father CHF (congestive heart failure) Social History Social History Years smoked: 43 Smoking status: Former smoker Tobacco type: cigarettes Smoking end date: 11/30/23 Additional smoking assessment comments: DENIES ANY FORM OF TOBACCO USE Alcohol intake: never Substance use type: does not use Do You Feel Safe in your Home?: Yes Lack of Transportation: No Lack of Food: Never True Current Housing: I Have Housing Concerned About Future Housing: No Difficulty Paying Gas/Electric Bills: No Difficulty Paying for Meds: No Currently Unemployed: No Education: Trade/Vocational Certificate Difficulty w/ Childcare or Family Care: No Living arrangements: alone Occupation/Education: occupation Additional occupation/education comments: [employer] Gender identity (if verbalized by the patient): Male Spiritual care concerns: No Meds Home Medications and Allergies Home Medications Medication Instructions Recorded Confirmed Type amlodipine 5 mg tablet 5 mg PO BID 11/06/23 04/07/24 History ascorbic acid (vitamin C) 1,000 mg 1 g PO DAILY 11/06/23 04/07/24 History tablet calcium 600 mg-D3 20 mcg-magnesium 1 tablet PO TID 11/06/23 04/07/24 History 40 lt-srdphp-lbds-zinc chew tablet diclofenac sodium 75 mg 75 mg PO BID 11/06/23 04/07/24 History tablet,delayed release glimepiride 4 mg tablet 4 mg PO QAM 11/06/23 04/07/24 History metformin 1,000 mg tablet,extended 1,000 mg PO BID 11/06/23 04/07/24 History release 24hr (osmotic) valsartan 320 1 tablet PO DAILY 11/06/23 04/07/24 History mg-hydrochlorothiazide 25 mg tablet vitamin A-vitamin D3 5,000 1 cap PO DAILY 11/06/23 04/07/24 History unit-400 unit capsule vitamin B complex 1 cap PO DAILY 11/06/23 04/07/24 History vitamin E (dl, acetate) 45 mg (100 45 mg PO DAILY 11/06/23 04/07/24 History unit) capsule fcozwoq-fftsyyqnc-utcg 333 mg-133 1 tablet PO DAILY 12/30/23 04/07/24 History mg-8.3 mg tablet coQ10 (ubiquinol) 100 mg capsule 100 mg PO BID 12/30/23 04/07/24 History glucosamine sulf dipot 1 cap PO BID 12/30/23 04/07/24 History chlr,msm,chond 550 mg-C 30 mg-carlos 1 mg capsule (Glucosamine Chondroitin) vitamin D3 1,250 mcg (50,000 1 cap PO TID 12/30/23 04/07/24 History unit)-vitamin K2 200 mcg capsule atorvastatin 10 mg tablet 10 mg PO DAILY 04/07/24 04/07/24 History rivaroxaban 10 mg tablet (Xarelto) 10 mg PO DAILY PE prophylaxis s/p 04/09/24 Rx joint replacement surgery 10 days #10 tabs Allergies Allergy/AdvReac Type Severity Reaction Status Date / Time No Known Allergies Allergy Verified 04/07/24 15:05 Exam Narrative: On exam he has bost-dp-uxwd changes. His knee motion is from 3 to 110?. He has varus deformity grinding crepitus and pain with manipulation. Neurologically is grossly intact. He walks with an antalgic gait. He has pain with any manipulation and grinding. Eyes: General: appearance normal, both eyes and all related structures Neck: Neck: supple Resp: Effort & Inspection: normal respiratory effort Cardio: Rate: regular rate Rhythm: regular rhythm Assessment and Plan Assessment and plan (1) Osteoarthritis of knees, bilateral: Code(s): M17.0 - Bilateral primary osteoarthritis of knee Status: Acute Assessment and Plan: Patient has arthritis right knee. He has had a previous total knee arthroplasties done well from that. He like to proceed with total knee arthroplasty on the right. I discussed treatment options with him risks benefits limitations and alternatives. He understands and agrees will proceed per his request, discussed.
[2024-07-24 15:22] VITALS: BMI 36.6
--- NOTE | 2024-07-24 15:39 | PC.NURSE ---
Report to the Outpatient Waiting Room, entrance under the green pavilion located off [facility], at time _06:00am__on date __08/10/24 . Planned Procedure Time: __07:30am .? Time changes happen often and if your time is changed the preop area will call you the afternoon before. - You and your visitor will be asked to self-screen and do not enter if you have any COVID symptoms. Please call surgeon if you need to reschedule. - A mask is optional within the hospital at this time. Patients may have clear liquids (water, carbonated beverages, clear teas, apple juice) until 3 hours prior to surgery with a maximum of 20 ounces. - No food from midnight until time of surgery and no smoking ( 04:30am) Take only the following medications with a SIP of water on the morning of surgery: ___Amlodipine & Tylenol if needed DO NOT STOP ANY OF YOUR OTHER PRESCRIPTION MEDICATIONS PRIOR TO SURGERY EXCEPT THE FOLLOWING Medications to discontinue per physician ___Pt states same instructions as before- Pt to hold all Vitamins and supplements [address] Grace. Last dose is 08/04/24 . HOLD DICLOFENAC 3 days Preop to Surgery per DR Grace. Last dose is 08/06/24 Please no make-up, nail occitan, hairspray, perfume, deodorant, or body powder the day of surgery.? No jewelry (including any body piercings) or valuables the day of surgery, leave them at home.? Please take a shower or bath the night before, or the morning of, surgery with an antibacterial soap.? Wear comfortable, loose fitting clothing.? Children are encouraged to wear pajamas. - Jewelry must be removed prior to entering the operating room.? Rings and piercings that are not removed may be cut off. - The hospital will not accept responsibility for valuables.? - Please leave all valuables, including medications, at home the day of surgery. If you are going home after surgery, a licensed certified driver examiner must drive you home.? - NO public transportation without another adult if you receive anesthesia. - We recommend that an adult stay with you for 24 hours following discharge. - We also recommend that you do not drive, make important decision, drink alcoholic beverages, or take any drugs that were not prescribed by your health care provider for at least 24 hours after your discharge time. Follow any additional instructions given to you from your surgeon. Telephone instructions given to __Patient and asked if any additional questions and then verbalized understanding. Patient advised to call surgeon office or pre surgery nurse liaison [phone] if any additional questions.
[2024-08-10] VITALS (13 sets, daily range): BP systolic 118–149; BP diastolic 67–88; PULSE 77–95; RESP 13–20; TEMP 36.2–36.7; O2SAT 92–98
--- NOTE | ~2024-08-10 | XR_ITS ---
EXAMINATION: XR_KNEE1-2VRT_CR DATE: 08/10/2024 10:28 INDICATION: Postoperative evaluation following right total knee arthroplasty. TECHNIQUE: Anteroposterior and lateral views of the right knee were obtained. COMPARISON: None. FINDINGS: Right total knee arthroplasty with patellar resurfacing appears well seated and in near anatomic alig nment. No fractures identified. Anterior skin sarah and expected postoperative subcutaneous, intra medullary and intra-articular gas. IMPRESSION: 1. Right total knee arthroplasty, negative for postoperative purposes. 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
[2024-08-10] MEDS: ACETAMINOPHEN 500 MG TABLET 1000 MG PO (06:35)
--- NOTE | 2024-08-10 06:50 | WPDHPUPDATE1 ---
History and Physical Update Update Date/Time: 08/10/24 06:50 History and Physical has been reviewed, including an updated exam of the patient. There are NO changes in the patient's condition. Risks, benefits, and alternatives have been discussed and questions answered. Patient agrees to proceed with procedure.
[2024-08-10 07:05] LABS: Glucose Point of Care 159 mg/dl (65-105)
[2024-08-10] MEDS: VANCOMYCIN 1,750 MG/NS 500 ML 1,750 MG/500 ML BAG 250 MG IVPB (07:05)
[2024-08-10] MEDS: LACTATED RINGERS 1,000 ML 30 ML IV CONT ×2 (07:10→09:51)
[2024-08-10] MEDS: TRANEXAMIC ACID 1,000MG/ISO100 1,000 MG/100 ML BAG 200 MG IVPB (07:12)
--- NOTE | 2024-08-10 07:36 | WPDANESEPPF ---
Anes - Initial Pre Proc Eval Procedure: Operation Date: 04/13/24 07:30 Proposed Procedures p Right Total Knee Arthroplasty - Robert Grace MD Operation Date: 08/10/24 07:30 Proposed Procedures p Right Total Knee Arthroplasty - Robert Grace MD Date/Time: 08/10/24 07:36 Surgeon: Robert Grace MD Pre Op Diagnosis: oa right knee Patient Data Age: 63 Gender: M Height: 1.78 m Weight: 119.1 kg Last Vital Signs Temp 36.6 C 08/10/24 07:08 Pulse 95 08/10/24 07:08 Resp 16 08/10/24 07:08 BP 149/88 H 08/10/24 07:08 Pulse Ox 96 08/10/24 07:08 O2 Del Method Room Air 08/10/24 07:08 Allergies Allergy/AdvReac Type Severity Reaction Status Date / Time No Known Allergies Allergy Verified 08/10/24 06:31 Home Medications Medication Instructions Recorded Confirmed Type amlodipine 5 mg tablet 5 mg PO BID 11/06/23 08/10/24 History ascorbic acid (vitamin C) 1,000 mg 1 g PO DAILY 11/06/23 08/10/24 History tablet calcium 600 mg-D3 20 mcg-magnesium 1 tablet PO TID 11/06/23 08/10/24 History 40 av-gwynpa-stds-zinc chew tablet diclofenac sodium 75 mg 75 mg PO BID 11/06/23 08/10/24 History tablet,delayed release glimepiride 4 mg tablet 4 mg PO QAM 11/06/23 08/10/24 History metformin 1,000 mg tablet,extended 1,000 mg PO BID 11/06/23 08/10/24 History release 24hr (osmotic) valsartan 320 1 tablet PO DAILY 11/06/23 08/10/24 History mg-hydrochlorothiazide 25 mg tablet vitamin A-vitamin D3 5,000 1 cap PO DAILY 11/06/23 08/10/24 History unit-400 unit capsule vitamin B complex 1 cap PO DAILY 11/06/23 08/10/24 History vitamin E (dl, acetate) 45 mg (100 45 mg PO DAILY 11/06/23 08/10/24 History unit) capsule ruhtmul-awpxuuxrw-ralb 333 mg-133 1 tablet PO DAILY 12/30/23 08/10/24 History mg-8.3 mg tablet coQ10 (ubiquinol) 100 mg capsule 100 mg PO BID 12/30/23 08/10/24 History glucosamine sulf dipot 1 cap PO BID 12/30/23 08/10/24 History chlr,msm,chond 550 mg-C 30 mg-carlos 1 mg capsule (Glucosamine Chondroitin) vitamin D3 1,250 mcg (50,000 1 cap PO TID 12/30/23 08/10/24 History unit)-vitamin K2 200 mcg capsule atorvastatin 10 mg tablet 10 mg PO DAILY 04/07/24 08/10/24 History dapagliflozin propanediol 10 mg 10 mg PO DAILY 07/14/24 08/10/24 History tablet (Farxiga) Laboratory Tests 08/10/24 07:02 POC Capillary Glucose 159 H mg/dl (65-105) Patient hx anesthesia problems: none Family hx anesthesia problems: none Results Review: All pre-operative results and documents have been reviewed as part of the pre-operative evaluation. [facility] Past Medical History Medical History Diabetes Hyperlipidemia Hypertension Surgical History Surgical History History of left knee replacement History of tonsillectomy Family History Family History Mother Diabetes mellitus Hypertension Father CHF (congestive heart failure) Social History Social History Years smoked: 43 Smoking status: Former smoker Tobacco type: cigarettes Smoking end date: 11/30/23 Additional smoking assessment comments: DENIES ANY FORM OF TOBACCO USE Alcohol intake: never Substance use type: does not use Current Housing: Decline to Answer Concerned About Future Housing: Decline to Answer Difficulty Paying Gas/Electric Bills: Decline to Answer Difficulty Paying for Meds: Decline to Answer Currently Unemployed: Decline to Answer Education: Decline to Answer Difficulty w/ Childcare or Family Care: Decline to Answer Living arrangements: alone Occupation/Education: occupation Additional occupation/education comments: [employer] Gender identity (if verbalized by the patient): Male Spiritual care concerns: No Anes - Eval Final PreProcedure Day of Procedure 08/10/24 07:36 Patient weight: obese Heart: regular rate and rhythm Lungs: decreased breath sounds Airway: Mallampati scale class II Neurological: alert and oriented Last oral intake: >/= 8 hours ASA classification: III Emergent: no Anesthetic plan: proceed Anesthesia type and monitoring: general LMA and standard monitoring Results Review: All pre-operative results and documents have been reviewed as part of the pre-operative evaluation. Informed Consent: The patient's anesthetic plan and its attendant risks and benefits were discussed with the patient/family/POA. Questions were solicited and answers provided to the satisfaction of the patient/family/POA.
[2024-08-10] MEDS: ceFAZolin 2 GM/D5W 50 ML 2 GM/50 ML BAG IVPB ×2 (07:41→17:21)
[2024-08-10] MEDS: SODIUM CHLORIDE 0.9% IV 37.7 ML, MORPHINE SULFATE INJ (*CRX) 2 MG, ROPivacaine HCL 1% 2... INFILTRATE (08:17)
[2024-08-10] MEDS: GENTAMICIN BONE CEMENT REFOBACIN 1 EACH TOPICAL (09:02)
--- NOTE | 2024-08-10 09:38 | W.PM.PROC2 ---
Procedure Note - Detailed Date of Procedure 08/10/24 Pre-op Diagnosis Osteoarthitis Right knee Post-op Diagnosis Same Procedure Performed RIGHT total knee arthroplasty Surgeon Robert Grace MD [employer] Anesthesia General Indications Pain and Arthritis Description of Procedure The patient was brought to operating room #8. A general anesthetic was administered. Placed on the operating table and sterilely prepped and draped in usual manner. A longitudinal incision was made. Tourniquet inflated to 300 mmHg for a total of 69 minutes. Dissection was carried down to the fascia. Medial parapatellar incision was made and the patella subluxated laterally. Patella cut from 24 to 15 mm and sized for a 34 mm button. The tibia was cut perpendicular to the long axis and femur cut in 5 degrees of valgus. A 67.5 femur trialed. 67 tibia was felt to fit the best. The soft tissues balanced, with considerable difficulty. He lacked 15 degrees of extension and had significant varus. I released him medially around the posterior aspect and cut off some tibia medially to obtain functional motion and stability. At this point hemostasis obtained. All [address], 67 tibia, 67.5 femur, 34 mm patella, and 12AS mm poly. Motion was 3-125 degrees with good stability in both flexion and extension. The wound was closed with #2 Vicryl, 2-0 Vicryl and sarah. [employer] Estimated Blood Loss 200 Drains No Packing No Pathology None sent Complications No immediate complications Condition Stable Disposition PACU [facility] Billing Surgery - Charge Forward: Surgery Billing ([id number] Total Knee)
[2024-08-10 10:07] LABS: Glucose Point of Care 244 mg/dl (65-105)
--- NOTE | 2024-08-10 12:17 | P.CONIM_ITS ---
Assessment and Plan Assessment and plan (1) Osteoarthritis of knees, bilateral: Code(s): M17.0 - Bilateral primary osteoarthritis of knee Status: Acute Assessment and Plan: Prior left total knee arthroplasty, now admitted for right total knee arthroplasty with planned overnight stay and discharged home after PT OT clearance and IV antibiotics. Primarily managed by Orthopedics Service, hospitalist consulted for medical management of hypertension and diabetes. (2) History of knee replacement procedure of left knee: Code(s): Z96.652 - Presence of left artificial knee joint Status: Acute Assessment and Plan: Did well with left total knee arthroplasty in the past (3) Aftercare following right knee joint replacement surgery: Code(s): Z47.1 - Aftercare following joint replacement surgery; Z96.651 - Presence of right artificial knee joint Status: Acute Assessment and Plan: Underwent right total knee arthroplasty on 08/10/2024 PT and OT consulted Planned discharge 08/11/2024 (4) Diabetes: Code(s): E11.9 - Type 2 diabetes mellitus without complications Status: Acute Assessment and Plan: Surgery had been delayed due to A1c over 8 the got down below 7 after initiation of Farxiga on top of metformin and glimepiride. For lunch patient had orders for regular diet, this was changed to carb consistent for dinner ACHS Accu-Cheks with sliding scale insulin (5) Hypertension: Code(s): I10 - Essential (primary) hypertension Status: Acute Assessment and Plan: Blood pressures reviewed on 08/10/2024, stable, continue home medications (6) Hyperlipidemia: Code(s): E78.5 - Hyperlipidemia, unspecified Status: Acute Assessment and Plan: Continue home medication HPI Date of Consult Consult date: 08/10/24 Requesting Physician: Robert Grace MD Primary Care Provider: Eligio DialloMD Consult Narrative Narrative: Paul Mireles is a 63 year old male with past medical history of hypertension diabetes who underwent right total knee arthroplasty today. Hospitalist service was consulted for medical management of hypertension and diabetes. Patient reports participating well with PT and OT today. Plan is to discharge tomorrow to home. Patient reports that his surgery had been delayed due to elevated hemoglobin A1c above 8 and his primary care placed him on Farxiga which helped his A1c get below 7 and allow him to qualify for surgery. Patient reports adequate pain control at this time. He denies any other medical needs at this time. He did receive lunch after surgery was originally placed in for a regular diet. This was changed to carb controlled for dinner as well as the addition of ACHS Accu-Cheks with sliding scale insulin. Review of Systems Review of Systems: All systems reviewed & are unremarkable except as noted in HPI and below PMFSH Past Medical History Medical History Diabetes Hyperlipidemia Hypertension Surgical History Surgical History History of left knee replacement History of tonsillectomy Family History Family History Mother Diabetes mellitus Hypertension Father CHF (congestive heart failure) Social History Social History Smoking packs per day: 0.25 Smoking cigarettes per day: 5.0 Years smoked: 43 Smoking pack-years: 10.75 Smoking status: Former smoker Additional smoking assessment comments: DENIES ANY FORM OF TOBACCO USE Alcohol intake: never Substance use: never Substance use type: does not use Do You Feel Safe in your Home?: Yes Lack of Transportation: No Lack of Food: Never True Current Housing: Decline to Answer Concerned About Future Housing: Decline to Answer Difficulty Paying Gas/Electric Bills: Decline to Answer Difficulty Paying for Meds: Decline to Answer Currently Unemployed: Decline to Answer Education: Decline to Answer Difficulty w/ Childcare or Family Care: Decline to Answer Living arrangements: alone Occupation/Education: occupation Additional occupation/education comments: [employer] Gender identity (if verbalized by the patient): Male Spiritual care concerns: No Meds Home Medications and Allergies Home Medications Medication Instructions Recorded Confirmed Type amlodipine 5 mg tablet 5 mg PO BID 11/06/23 08/10/24 History ascorbic acid (vitamin C) 1,000 mg 1 g PO DAILY 11/06/23 08/10/24 History tablet calcium 600 mg-D3 20 mcg-magnesium 1 tablet PO TID 11/06/23 08/10/24 History 40 nb-paxygt-edqy-zinc chew tablet diclofenac sodium 75 mg 75 mg PO BID 11/06/23 08/10/24 History tablet,delayed release glimepiride 4 mg tablet 4 mg PO QAM 11/06/23 08/10/24 History metformin 1,000 mg tablet,extended 1,000 mg PO BID 11/06/23 08/10/24 History release 24hr (osmotic) valsartan 320 1 tablet PO DAILY 11/06/23 08/10/24 History mg-hydrochlorothiazide 25 mg tablet vitamin A-vitamin D3 5,000 1 cap PO DAILY 11/06/23 08/10/24 History unit-400 unit capsule vitamin B complex 1 cap PO DAILY 11/06/23 08/10/24 History vitamin E (dl, acetate) 45 mg (100 45 mg PO DAILY 11/06/23 08/10/24 History unit) capsule eyhccym-ejznpwgex-vngc 333 mg-133 1 tablet PO DAILY 12/30/23 08/10/24 History mg-8.3 mg tablet coQ10 (ubiquinol) 100 mg capsule 100 mg PO BID 12/30/23 08/10/24 History glucosamine sulf dipot 1 cap PO BID 12/30/23 08/10/24 History chlr,msm,chond 550 mg-C 30 mg-carlos 1 mg capsule (Glucosamine Chondroitin) vitamin D3 1,250 mcg (50,000 1 cap PO TID 12/30/23 08/10/24 History unit)-vitamin K2 200 mcg capsule atorvastatin 10 mg tablet 10 mg PO DAILY 04/07/24 08/10/24 History dapagliflozin propanediol 10 mg 10 mg PO DAILY 07/14/24 08/10/24 History tablet (Farxiga) blood sugar diagnostic (OneTouch 08/10/24 08/10/24 History Ultra Test strips) Allergies Allergy/AdvReac Type Severity Reaction Status Date / Time No Known Allergies Allergy Verified 08/10/24 06:31 Vital Signs Vital Signs - 24 hr 08/10/24 07:08 08/10/24 09:51 08/10/24 10:05 Temperature 36.6 C 36.4 C Pulse Rate 95 83 82 Respiratory Rate 16 20 16 Blood Pressure 149/88 H 127/76 129/78 Pulse Oximetry 96 92 93 Oxygen Delivery Room Air Room Air Nasal Cannula Oxygen Flow Rate 2 08/10/24 10:20 08/10/24 10:35 08/10/24 10:50 Temperature 36.6 C Pulse Rate 80 82 80 Respiratory Rate 14 14 14 Blood Pressure 137/84 136/83 130/81 Pulse Oximetry 97 98 98 Oxygen Delivery Nasal Cannula Nasal Cannula Nasal Cannula Oxygen Flow Rate 3 3 3 08/10/24 11:00 08/10/24 11:25 08/10/24 11:40 Temperature 36.4 C 36.5 C Pulse Rate 80 77 86 Respiratory Rate 14 17 15 Blood Pressure 130/82 136/77 124/73 Pulse Oximetry 98 98 98 Oxygen Delivery Nasal Cannula Oxygen Flow Rate 3 Exam Narrative: GENERAL: Well-appearing, well-nourished, and in no acute distress. HEAD: Normocephalic, atraumatic. ENT:? Mucous membranes moist. CHEST: Clear to auscultation.? No respiratory distress. HEART: Regular rate and rhythm. ? Normal peripheral pulses. ABDOMEN: Soft, nontender, nondistended. EXTREMITIES: Normal range of motion. No peripheral edema. Right knee bandaged with ice pack in place. SKIN: Warm dry normal color NEURO: Alert and oriented x3. PSYCH: Normal mood and affect Results Pulse Oximetry SpO2 results: 95-98% on room air Attestation: I personally reviewed and interpreted this pulse oximetry as follows: Interpretation: no need for supplemental oxygenation at this time Imaging Radiologist's impression: [place] [address] [address] [place] [address] XRay Report Signed Patient: Paul Mireles : 1960 MR#: [id number] Age: 63 Acct:[id number] Loc: [facility] ADM Date: 08/10/24Attending Dr: Robert Grace M.D. Ordering Physician: Robert Grace MD Date of Service: 08/10/24 Procedure(s): XR knee 1-2V RT Accession Number(s): [id number] cc: Robert Grace MD; Yoel, Eligio Herrera MD~ EXAMINATION: [id number] DATE: 08/10/2024 10:28 INDICATION: Postoperative evaluation following right total knee arthroplasty. TECHNIQUE: Anteroposterior and lateral views of the right knee were obtained. COMPARISON: None. FINDINGS: Right total knee arthroplasty with patellar resurfacing appears well seated and in near anatomic alignment. No fractures identified. Anterior skin sarah and expected postoperative subcutaneous, intramedullary and intra-articular gas. IMPRESSION: 1. Right total knee arthroplasty, negative for postoperative purposes. 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
[2024-08-10 13:34] LABS: Glucose Point of Care 212 mg/dl (65-105)
[2024-08-10] MEDS: HYDROcodone/acetaminophen (*CRX) 5-325 MG TABLET 1 TAB PO ×2 (13:35→21:48)
[2024-08-10] MEDS: INSULIN ASPART (*BKC) 100 UNITS/ML SUB-Q ×2 (14:18→17:16)
[2024-08-10 17:02] LABS: Glucose Point of Care 247 mg/dl (65-105)
[2024-08-10] MEDS: CELECOXIB 200 MG CAPSULE PO (17:16)
[2024-08-10] MEDS: metFORMIN HCL XR 500 MG TAB.SR.24H 1000 MG PO (17:16)
[2024-08-10] MEDS: SENNA/DOCUSATE SODIUM TABLET 2 TAB PO (17:16)
[2024-08-10] MEDS: amLODIPine BESYLATE 5 MG TABLET PO (17:16)
[2024-08-10] MEDS: RIVAROXABAN 10 MG TABLET PO (17:21)
--- NOTE | 2024-08-10 17:48 | WPDANESPNB ---
Anes - Peripheral Nerve Block Date/Time: 08/10/24 17:48 I have discussed with the patient/family/POA the placement of a peripheral nerve block for post-operative pain management, including associated risks, benefits, complications, and side effects. Alternative methods of post-operative analgesia were detailed. Questions were solicited and answers provided to the satisfaction of the patient/family/POA. Time-Out: A pre-procedural Time-Out was completed immediately before starting the procedure and confirmed: Patient Identification, Site, Procedure, Patient Position and the Availability of Requisite Equipment. Clinical Indications: Acute post-operative pain management requested by the operative surgeon. Nerve Block Insertion Note Anes-nerve block: adductor canal right Patient position: supine Skin prep: chlorhexidine Needle: 22 gauge, stimulating, insulated echogenic needle. Needle length: 80 mm Technique: ultrasound Injectate: bupivacaine 0.5% with epi 5 mcg/ml (no epi) Observations: tolerated well Procedure start time:: 1000 Procedure end time:: 1006
[2024-08-10 19:59] LABS: Glucose Point of Care 232 mg/dl (65-105)
[2024-08-11] MEDS: ceFAZolin 2 GM/D5W 50 ML 2 GM/50 ML BAG IVPB ×2 (00:01→08:13)
[2024-08-11 00:52] VITALS: BP 147/74; PULSE 91; RESP 12; TEMP 37; O2SAT 98
[2024-08-11] MEDS: HYDROmorphone HCL INJ (*CRX) 1 MG/ML SYR IV PUSH (04:04)
[2024-08-11] MEDS: HYDROcodone/acetaminophen (*CRX) 7.5-325 MG TABLET 1 TAB PO (04:39)
[2024-08-11 04:52] VITALS: BP 138/69; PULSE 94; RESP 16; TEMP 36.8; O2SAT 95
[2024-08-11 05:31] LABS: Basophils Absolute Auto 0.1 K/mm3 (0.0-0.1); Basophils Percent Auto 0.4 % (0.2-1.2); Eosinophils Percent Auto 0.1 % (0-4.4); Hematocrit 40.1 % (42.0-52.0); Hemoglobin 13.2 g/dL (14.0-18.0); Immature Granulocyte Absolute 0.06 K/mm3 (0.00-0.031); Immature Granulocyte Percent A 0.4 % (0-0.5); Lymphocytes Absolute Auto 2.73 K/mm3 (0.9-3.2); Lymphocytes Percent Auto 19.4 % (18.3-44.2); Mean Corpuscular HGB Conc 32.9 g/dl (32-36); Mean Corpuscular Hemoglobin 29.9 pg (26-34); Mean Corpuscular Volume 90.7 fl (80-100); Mean Platelet Volume 9.8 fl (7.4-10.4); Monocytes Absolute Auto 1.4 K/mm3 (0.1-0.6); Monocytes Percent Auto 9.6 % (2.6-8.5); Neutrophils Absolute Auto 9.9 K/mm3 (1.3-6.7); Neutrophils Percent Auto 70.1 % (45.5-73.1); Platelet Count Result 255 k/mm3 (150-375); Red Blood Count 4.42 M/mm3 (4.6-6.20); Red Cell Distribution Width 12.9 % (11.5-14.5); White Blood Count 14.1 K/mm3 (4.5-10.0)
[2024-08-11 05:45] LABS: Anion Gap 10 mmol/L (4-12); Blood Urea Nitrogen 20 mg/dL (9-20); Calcium 8.5 mg/dL (8.4-10.2); Carbon Dioxide 25 mmol/L (22-30); Chloride 100 mmol/L (98-107); Estimated CRCL calculation 97 ml/min; Estimated Glomerular Filt Rate > 60; Glucose 192 mg/dL (65-110); Potassium 3.9 mmol/L (3.4-5.0); Sodium 135 mmol/L (137-145)
--- NOTE | 2024-08-11 07:16 | P.PNOP_ITS ---
Progress Note: A&P Assessment and Plan (1) History of knee replacement procedure of right knee: Code(s): Z96.651 - Presence of right artificial knee joint Status: Acute Assessment and Plan: Patient is status post total knee arthroplasty right. He is doing well postoperatively. He has to work to maintain his extension. We discussed that he is sleeping with a pillow under his knee and a total not to do that. I will see him back in 2 weeks in the meantime he should push of motion hard. He has any changes or problems he is instructed call discussed. Subjective Subjective Date/Time Seen: 08/11/24 07:16 Post Op day: 1 Principal diagnosis: Right total knee arthroplasty for osteoarthritis Review of Systems Musculoskeletal: Musculoskeletal: Reports arthralgias, Reports joint swelling and Reports stiffness Exam Narrative: Patient is able wiggle his toes and move his knee without too much pain. He is able ambulate. He is a difficult time getting his leg straight. Neurologically appears to be intact Resp: Effort & Inspection: normal respiratory effort Cardio: Rate: regular rate Rhythm: regular rhythm Objective Data Vital Signs Vital Signs: Vital Signs - 24 hr 08/10/24 09:51 08/10/24 10:05 08/10/24 10:20 Temperature 97.6 F Pulse Rate 83 82 80 Respiratory Rate 20 16 14 Blood Pressure 127/76 129/78 137/84 Pulse Oximetry 92 93 97 Oxygen Delivery Room Air Nasal Cannula Nasal Cannula Oxygen Flow Rate 2 3 08/10/24 10:35 08/10/24 10:50 08/10/24 11:00 Temperature 97.9 F Pulse Rate 82 80 80 Respiratory Rate 14 14 14 Blood Pressure 136/83 130/81 130/82 Pulse Oximetry 98 98 98 Oxygen Delivery Nasal Cannula Nasal Cannula Nasal Cannula Oxygen Flow Rate 3 3 3 08/10/24 11:25 08/10/24 11:40 08/10/24 13:44 Temperature 97.6 F 97.7 F Pulse Rate 77 86 Respiratory Rate 17 15 Blood Pressure 136/77 124/73 Pulse Oximetry 98 98 Oxygen Delivery Room Air Oxygen Flow Rate 08/10/24 10:52 08/10/24 13:10 08/10/24 14:00 Temperature 97.2 F L 97.5 F L Pulse Rate 83 80 Respiratory Rate 16 14 Blood Pressure 127/75 118/67 Pulse Oximetry 98 97 Oxygen Delivery Room Air Oxygen Flow Rate 08/10/24 17:02 08/10/24 20:52 08/10/24 20:00 Temperature 97.2 F L 98.0 F Pulse Rate 85 88 Respiratory Rate 14 13 Blood Pressure 130/70 148/87 H Pulse Oximetry 95 95 Oxygen Delivery Room Air Oxygen Flow Rate 08/11/24 00:52 08/11/24 04:52 Temperature 98.6 F 98.2 F Pulse Rate 91 94 Respiratory Rate 12 16 Blood Pressure 147/74 H 138/69 Pulse Oximetry 98 95 Oxygen Delivery Oxygen Flow Rate Intake/Output Intake/Output: Intake & Output 08/08/24 08/09/24 08/10/24 08/11/24 23:59 23:59 23:59 23:59 Intake Total 708 50 Balance 708 50 Meds/Results Medications: Active Medications Generic Name Dose Route Start Last Admin Trade Name Freq PRN Reason Stop Dose Admin Hydrocodone Bitart/Acetaminophen 1 tab 08/10/24 11:07 08/10/24 21:48 Hydrocodone/Acetaminophen (*Crx) 5-325 Mg Tablet PO 1 tab Q4H PRN Administration Pain Rated 4-6 Hydrocodone Bitart/Acetaminophen 1 tab 08/10/24 11:07 08/11/24 04:39 Hydrocodone/Acetaminophen (*Crx) 7.5-325 Mg Tablet PO 1 tab Q4H PRN Administration Pain Rated 7-10 Amlodipine Besylate 5 mg 08/10/24 17:00 08/10/24 17:16 Amlodipine Besylate 5 Mg Tablet PO 5 mg BID [facility] Administration Atorvastatin Calcium 10 mg 08/11/24 09:00 Atorvastatin 10 Mg Tablet PO DAILY [facility] Celecoxib 200 mg 08/10/24 17:00 08/10/24 17:16 Celecoxib 200 Mg Capsule PO 200 mg BIDWM BRADLEY Administration Cyclobenzaprine HCl 10 mg 08/10/24 11:07 Cyclobenzaprine Hcl 10 Mg Tablet PO Q8H PRN Spasms Dextrose 12.5 gm 08/10/24 12:51 Dextrose 50% 25 Gm/50 Ml Syringe IV PUSH PRN PRN Hypoglycemia Protocol Diphenhydramine HCl 25 mg 08/10/24 11:07 Diphenhydramine Hcl Inj 50 Mg/Ml Vial IV PUSH Q6H PRN Itching Empagliflozin 25 mg 08/11/24 09:00 Empagliflozin 25 Mg Tablet BY MOUTH DAILY [facility] Glimepiride 4 mg 08/11/24 09:00 Glimepiride 2 Mg Tablet PO DAILY [facility] Glucagon 1 mg 08/10/24 12:51 Glucagon For Inj 1 Mg Vial IM PRN PRN Hypoglycemia Protocol Glucose 15 gm 08/10/24 12:51 Glucose Oral Gel 15 Gm Of Glucse In 37.5 Gm Tube PO PRN PRN Hypoglycemia Protocol Hydrochlorothiazide 25 mg 08/11/24 09:00 Hydrochlorothiazide 25 Mg Tablet PO QAM [facility] Hydromorphone HCl 1 mg 08/10/24 11:07 08/11/24 04:04 Hydromorphone Hcl Inj (*Crx) 1 Mg/Ml Syr IV PUSH 1 mg Q2H PRN Administration Breakthrough Pain Rated 7-10 or NPO Hydromorphone HCl 0.5 mg 08/10/24 11:07 Hydromorphone Hcl Inj (*Crx) 1 Mg/Ml Syr IV PUSH Q2H PRN Breakthrough Pain Rated 4-6 or NPO Cefazolin Sodium 2 gm in 50 mls @ 100 mls/hr 08/10/24 16:00 08/11/24 00:31 Ancef 2 Gm/D5w 50 Ml IVPB 08/11/24 08:29 Infused Q8H [facility] Infusion Ibuprofen 800 mg in 200 mls @ 400 mls/hr 08/10/24 11:07 Caldolor 800 Mg/200 Ml IVPB Q6H PRN Breakthrough Pain Rated 1-3 or NPO Dextrose 1,000 mls @ 100 mls/hr 08/10/24 12:51 Dextrose 5% 1,000 Ml IVPB PRN PRN Hypoglycemia Protocol Insulin Aspart 4 - 8 units 08/10/24 13:37 08/10/24 17:16 Insulin Aspart (*Bkc) 100 Units/Ml SUB-Q 4 units TIDWM BRADLEY Administration Protocol Metformin HCl 1,000 mg 08/10/24 17:00 08/10/24 17:16 Metformin Hcl Xr 500 Mg Tab.Sr.24h PO 1,000 mg BID BRADLEY Administration Naloxone HCl 0.1 mg 08/10/24 11:07 Naloxone Hcl 0.4 Mg/Ml Vial IV PUSH Q2M PRN Opiate Reversal Ondansetron HCl 4 mg 08/10/24 11:07 Ondansetron Inj 4 Mg/2 Ml Vial IV PUSH Q4H PRN Nausea And Vomiting Polyethylene Glycol 17 gm 08/11/24 09:00 Polyethylene Glycol 3350 17 Gm Powd.Pack PO QAM [facility] Rivaroxaban 10 mg 08/10/24 17:00 08/10/24 17:21 Rivaroxaban 10 Mg Tablet PO 08/21/24 17:01 10 mg DAILY@17 [facility] Administration Senna/Docusate Sodium 2 tab 08/10/24 17:00 08/10/24 17:16 Senna/Docusate Sodium Tablet PO 2 tab BID [facility] Administration Tramadol HCl 50 mg 08/10/24 11:07 Tramadol Hcl (*Crx) 50 Mg Tablet PO Q4H PRN Pain Rated 1-3 Valsartan 320 mg 08/11/24 09:00 Valsartan 160 Mg [facility] [place] [facility] Results: ITS Impressions Knee X-Ray 08/10/24 10:56 IMPRESSION: 1. Right total knee arthroplasty, negative for postoperative purposes. Labs Labs: Laboratory Results - last 24 hr 08/10/24 08/10/24 08/10/24 10:04 13:29 16:51 WBC RBC Hgb Hct MCV MCH MCHC RDW Plt Count MPV Immature Gran % (Auto) Neut % (Auto) Lymph % (Auto) [place] % (Auto) Eos % (Auto) Baso % (Auto) Lymph # (Auto) [place] # (Auto) Eos # (Auto) Baso # (Auto) Abs Immat Gran (auto) Absolute Neuts (auto) Absolute Nucleated RBC Nucleated RBC % Sodium Potassium Chloride Carbon Dioxide Anion Gap BUN Creatinine Estim Creat Clear Calc Estimated GFR Glucose POC Capillary Glucose 244 H 212 H 247 H Calcium 08/10/24 08/11/24 19:32 05:10 WBC 14.1 H RBC 4.42 L Hgb 13.2 L Hct 40.1 L MCV 90.7 MCH 29.9 MCHC 32.9 RDW 12.9 Plt Count 255 MPV 9.8 Immature Gran % (Auto) 0.4 Neut % (Auto) 70.1 Lymph % (Auto) 19.4 [place] % (Auto) 9.6 H Eos % (Auto) 0.1 Baso % (Auto) 0.4 Lymph # (Auto) 2.73 [place] # (Auto) 1.4 H Eos # (Auto) 0.0 Baso # (Auto) 0.1 Abs Immat Gran (auto) 0.06 H Absolute Neuts (auto) 9.9 H Absolute Nucleated RBC 0.000 Nucleated RBC % 0.0 Sodium 135 L Potassium 3.9 Chloride 100 Carbon Dioxide 25 Anion Gap 10 BUN 20 Creatinine 0.90 Estim Creat Clear Calc 97 Estimated GFR > 60 Glucose 192 H POC Capillary Glucose 232 H Calcium 8.5
--- NOTE | 2024-08-11 07:22 | P.DS_ITS ---
DS: Admitting Diagnosis Discharge Date 08/10/2024 Admitting Diagnosis Osteoarthritis right knee DS: Discharge Diagnosis Discharge Diagnosis (1) History of knee replacement procedure of right knee: Code(s): Z96.651 - Presence of right artificial knee joint Status: Acute Assessment and Plan: Patient underwent total knee arthroplasty for osteoarthritis of the right knee. DS: Summary Hospital Course Hospital Course: Patient had osteoarthritis of his right knee. This was unresponsive to conservative treatment he underwent total knee arthroplasty. Is complicated by his severe deformity good large varus deformity lacked about 15? of straightening. I was also able to realign the knee at the time of surgery however he was little tight going into extension. He will have to work hard to maintain that. He has done well in the hospital and may be dismissed home today. Time Spent with Patient Time attestation: Total time spent providing and/or coordinating discharge services: Exam Narrative: Patient is neurologically intact. He can wiggle his toes and move his leg. He is able to ambulate with a walker. DS: Data Data Completed and Pending Labs on day of discharge: Labs from last 24 hours 08/11/24 08/10/24 08/10/24 05:10 19:32 16:51 WBC 14.1 H RBC 4.42 L Hgb 13.2 L Hct 40.1 L MCV 90.7 MCH 29.9 MCHC 32.9 RDW 12.9 Plt Count 255 MPV 9.8 Immature Gran % (Auto) 0.4 Neut % (Auto) 70.1 Lymph % (Auto) 19.4 [place] % (Auto) 9.6 H Eos % (Auto) 0.1 Baso % (Auto) 0.4 Lymph # (Auto) 2.73 [place] # (Auto) 1.4 H Eos # (Auto) 0.0 Baso # (Auto) 0.1 Abs Immat Gran (auto) 0.06 H Absolute Neuts (auto) 9.9 H Absolute Nucleated RBC 0.000 Nucleated RBC % 0.0 Sodium 135 L Potassium 3.9 Chloride 100 Carbon Dioxide 25 Anion Gap 10 BUN 20 Creatinine 0.90 Estim Creat Clear Calc 97 Estimated GFR > 60 Glucose 192 H POC Capillary Glucose 232 H 247 H Calcium 8.5 08/10/24 08/10/24 13:29 10:04 WBC RBC Hgb Hct MCV MCH MCHC RDW Plt Count MPV Immature Gran % (Auto) Neut % (Auto) Lymph % (Auto) [place] % (Auto) Eos % (Auto) Baso % (Auto) Lymph # (Auto) [place] # (Auto) Eos # (Auto) Baso # (Auto) Abs Immat Gran (auto) Absolute Neuts (auto) Absolute Nucleated RBC Nucleated RBC % Sodium Potassium Chloride Carbon Dioxide Anion Gap BUN Creatinine Estim Creat Clear Calc Estimated GFR Glucose POC Capillary Glucose 212 H 244 H Calcium Discharge Plan Discharge Patient Disposition: Home, Self-Care Discharge Instructions: Dr. Robert Grace M.D [address] [place] [address] POST-OPERATIVE DISCHARGE INSTRUCTIONS TOTAL KNEE ARTHROPLASTY 1. When resting, do not rest in the chair.When resting, lie on your back, with back flat on the couch or bed, with leg elevated above heart to minimize swelling. You may put a pillow under your head. . Significant swelling could indicate a blood clot and if this occurs call the office (or go to the ER) to have a venous ultrasound. Therefore, do not rest in a chair. 2. At least five times a day spend several minutes stretching your knee into flexion while sitting in the chair and also stretching your knee out straight The abilities to bend your knee fulling and straighten your knee fully are two most important knee functions to focus on during your recovery. 3. It is ok to sit in chair to eat, use the toilet and receive a guest and to do your stretching exercises, but, sitting in a chair will cause your leg to swell. Therefore, avoid additional time sitting in the chair. and don't rest in the chair. 4. Wound Care: Nursing will give you an additional Mepilex dressing at the time of discharge. Patient to remove the dressing and apply a new Mepilex dressing at home 7 days after surgery and leave the dressing on until seen in office. 5. May shower with a Mepilex dressing in place.The water will run off the dressing. 6. Unless you are told otherwise, you may put full weight on your operated leg. Use a walker for balance and practice walking as normally as you can, ideally for a few minutes every hour while you are awake. 7. I would advise against putting ice packs on your knee incision. Ice constricts blood flow which can impar healing of the knee incision. IMPORTANT: Remember not to sit in the chair for more than 30 minutes at a time. As a rule, during the first 14 days after surgery, only sit in the chair to work on the chair knee bending stretch exercise, for meals or for use of the restroom. Sitting in the chair promotes significant swelling in the knee and leg which will make your knee stiff and more painful and which simulates having a blood clot in the veins of the leg. If this type of significant diffuse swelling occurs, an ultrasound at the hospital will be necessary to rule out a blood clot. Be up walking around with the walker for a few minutes every hour while awake and then rest laying on your back on the couch or in bed with your leg elevated on cushions or pillows. Do not rest in the chair. Stand Alone Forms: General Discharge Instructions Follow-up/Referrals: Robert Grace MD [Physician] - Discharge Medications: New hydrocodone-acetaminophen 7.5-325 mg tablet 1 tablet PO Q4H PRN (Reason: pain) Qty: 40 0RF cyclobenzaprine 10 mg tablet 10 mg PO HS PRN (Reason: muscle spasm) Qty: 30 0RF doxycycline hyclate 100 mg tablet 100 mg PO DAILY Qty: 20 0RF Xarelto 10 mg tablet 10 mg PO DAILY Qty: 14 0RF Rx Instructions: for 35 days Continued glimepiride 4 mg tablet 4 mg PO QAM Rx Instructions: administer with breakfast metformin 1,000 mg tablet extended release 24 hr 1,000 mg PO BID valsartan-hydrochlorothiazide 320-25 mg tablet 1 tablet PO DAILY amlodipine 5 mg tablet 5 mg PO BID Ca carb-D3-mag [id number] 600 mg-20 mcg- 40 mg-0.25 mg tablet,chewable 1 tablet PO TID vitamin A-vitamin D3 5,000-400 unit capsule 1 cap PO DAILY vitamin B complex Capsule 1 cap PO DAILY ascorbic acid (vitamin C) 1,000 mg tablet 1 g PO DAILY vitamin E (dl, acetate) 45 mg (100 unit) capsule 45 mg PO DAILY dapagliflozin propanediol [Farxiga] 10 mg tablet 10 mg PO DAILY atorvastatin 10 mg tablet 10 mg PO DAILY (DME) OneTouch Ultra Test Strip MISCELLANEOUS [id number] 333-133-8.3 mg Tablet 1 tablet PO DAILY Glucosamine Chondroitin 550-30-1 mg Capsule 1 cap PO BID coQ10 (ubiquinol) 100 mg Capsule 100 mg PO BID vitamin D3-vitamin K2 1,250-200 mcg Capsule 1 cap PO TID Held diclofenac sodium 75 mg tablet,delayed release (DR/EC) 75 mg PO BID
[2024-08-11 08:10] VITALS: BP 167/80; PULSE 90; O2SAT 93
[2024-08-11] MEDS: GLIMEPIRIDE 2 MG TABLET 4 MG PO (08:11)
[2024-08-11] MEDS: VALSARTAN 160 MG TABLET 320 MG PO (08:11)
[2024-08-11] MEDS: CELECOXIB 200 MG CAPSULE PO (08:11)
[2024-08-11] MEDS: metFORMIN HCL XR 500 MG TAB.SR.24H 1000 MG PO (08:11)
[2024-08-11] MEDS: hydroCHLOROthiazide 25 MG TABLET PO (08:11)
[2024-08-11] MEDS: EMPAGLIFLOZIN 25 MG TABLET BY MOUTH (08:12)
[2024-08-11] MEDS: ATORVASTATIN 10 MG TABLET PO (08:12)
[2024-08-11] MEDS: amLODIPine BESYLATE 5 MG TABLET PO (08:12)
[2024-08-11] MEDS: HYDROcodone/acetaminophen (*CRX) 5-325 MG TABLET 1 TAB PO (08:12)
[2024-08-11] MEDS: SENNA/DOCUSATE SODIUM TABLET 2 TAB PO (08:12)
[2024-08-11] MEDS: polyethylene glycoL 3350 17 GM POWD.PACK PO (08:13)
[2024-08-11 08:35] LABS: Glucose Point of Care 230 mg/dl (65-105)
[2024-08-11] MEDS: INSULIN ASPART (*BKC) 100 UNITS/ML SUB-Q (08:48)
[2024-08-11 08:52] VITALS: BP 145/73; PULSE 89; RESP 18; TEMP 36.6; O2SAT 94
[2024-08-11 11:58] LABS: Glucose Point of Care 185 mg/dl (65-105)
--- NOTE | 2024-08-11 12:17 | WPDPN ---
Subjective Date/time seen: 08/11/24 12:17 Objective Data Vital Signs Vital Signs: Vital Signs - 24 hr 08/10/24 13:44 08/10/24 13:10 08/10/24 14:00 Temperature 36.4 C L Pulse Rate 80 Respiratory Rate 14 Blood Pressure 118/67 Pulse Oximetry 97 Oxygen Delivery Room Air Room Air 08/10/24 17:02 08/10/24 20:52 08/10/24 20:00 Temperature 36.2 C L 36.7 C Pulse Rate 85 88 Respiratory Rate 14 13 Blood Pressure 130/70 148/87 H Pulse Oximetry 95 95 Oxygen Delivery Room Air 08/11/24 00:52 08/11/24 04:52 08/11/24 08:10 Temperature 37.0 C 36.8 C Pulse Rate 91 94 90 Respiratory Rate 12 16 Blood Pressure 147/74 H 138/69 167/80 H Pulse Oximetry 98 95 93 Oxygen Delivery 08/11/24 08:15 08/11/24 08:52 Temperature 36.6 C Pulse Rate 89 Respiratory Rate 18 Blood Pressure 145/73 H Pulse Oximetry 94 Oxygen Delivery Room Air Intake/Output Intake/Output: Intake & Output 08/08/24 08/09/24 08/10/24 08/11/24 23:59 23:59 23:59 23:59 Intake Total 708 170 Balance 708 170 Meds/Results Medications: Active Medications Generic Name Dose Route Start Last Admin Trade Name Freq PRN Reason Stop Dose Admin Hydrocodone Bitart/Acetaminophen 1 tab 08/10/24 11:07 08/11/24 08:12 Hydrocodone/Acetaminophen (*Crx) 5-325 Mg Tablet PO 1 tab Q4H PRN Administration Pain Rated 4-6 Hydrocodone Bitart/Acetaminophen 1 tab 08/10/24 11:07 08/11/24 04:39 Hydrocodone/Acetaminophen (*Crx) 7.5-325 Mg Tablet PO 1 tab Q4H PRN Administration Pain Rated 7-10 Amlodipine Besylate 5 mg 08/10/24 17:00 08/11/24 08:12 Amlodipine Besylate 5 Mg Tablet PO 5 mg BID BRADLEY Administration Atorvastatin Calcium 10 mg 08/11/24 09:00 08/11/24 08:12 Atorvastatin 10 Mg Tablet PO 10 mg DAILY BRADLEY Administration Celecoxib 200 mg 08/10/24 17:00 08/11/24 08:11 Celecoxib 200 Mg Capsule PO 200 mg BIDWM BRADLEY Administration Cyclobenzaprine HCl 10 mg 08/10/24 11:07 Cyclobenzaprine Hcl 10 Mg Tablet PO Q8H PRN Spasms Dextrose 12.5 gm 08/10/24 12:51 Dextrose 50% 25 Gm/50 Ml Syringe IV PUSH PRN PRN Hypoglycemia Protocol Diphenhydramine HCl 25 mg 08/10/24 11:07 Diphenhydramine Hcl Inj 50 Mg/Ml Vial IV PUSH Q6H PRN Itching Empagliflozin 25 mg 08/11/24 09:00 08/11/24 08:12 Empagliflozin 25 Mg Tablet BY MOUTH 25 mg DAILY BRADLEY Administration Glimepiride 4 mg 08/11/24 09:00 08/11/24 08:11 Glimepiride 2 Mg Tablet PO 4 mg DAILY BRADLEY Administration Glucagon 1 mg 08/10/24 12:51 Glucagon For Inj 1 Mg Vial IM PRN PRN Hypoglycemia Protocol Glucose 15 gm 08/10/24 12:51 Glucose Oral Gel 15 Gm Of Glucse In 37.5 Gm Tube PO PRN PRN Hypoglycemia Protocol Hydrochlorothiazide 25 mg 08/11/24 09:00 08/11/24 08:11 Hydrochlorothiazide 25 Mg Tablet PO 25 mg QAM BRADLEY Administration Hydromorphone HCl 1 mg 08/10/24 11:07 08/11/24 04:04 Hydromorphone Hcl Inj (*Crx) 1 Mg/Ml Syr IV PUSH 1 mg Q2H PRN Administration Breakthrough Pain Rated 7-10 or NPO Hydromorphone HCl 0.5 mg 08/10/24 11:07 Hydromorphone Hcl Inj (*Crx) 1 Mg/Ml Syr IV PUSH Q2H PRN Breakthrough Pain Rated 4-6 or NPO Ibuprofen 800 mg in 200 mls @ 400 mls/hr 08/10/24 11:07 Caldolor 800 Mg/200 Ml IVPB Q6H PRN Breakthrough Pain Rated 1-3 or NPO Dextrose 1,000 mls @ 100 mls/hr 08/10/24 12:51 Dextrose 5% 1,000 Ml IVPB PRN PRN Hypoglycemia Protocol Insulin Aspart 4 - 8 units 08/10/24 13:37 08/11/24 12:07 Insulin Aspart (*Bkc) 100 Units/Ml SUB-Q Not Given [facility] Protocol Metformin HCl 1,000 mg 08/10/24 17:00 08/11/24 08:11 Metformin Hcl Xr 500 Mg Tab.Sr.24h PO 1,000 mg BID BRADLEY Administration Naloxone HCl 0.1 mg 08/10/24 11:07 Naloxone Hcl 0.4 Mg/Ml Vial IV PUSH Q2M PRN Opiate Reversal Ondansetron HCl 4 mg 08/10/24 11:07 Ondansetron Inj 4 Mg/2 Ml Vial IV PUSH Q4H PRN Nausea And Vomiting Polyethylene Glycol 17 gm 08/11/24 09:00 08/11/24 08:13 Polyethylene Glycol 3350 17 Gm Powd.Pack PO 17 gm QAM BRADLEY Administration Rivaroxaban 10 mg 08/10/24 17:00 08/10/24 17:21 Rivaroxaban 10 Mg Tablet PO 08/21/24 17:01 10 mg DAILY@17 BRADLEY Administration Senna/Docusate Sodium 2 tab 08/10/24 17:00 08/11/24 08:12 Senna/Docusate Sodium Tablet PO 2 tab BID BRADLEY Administration Tramadol HCl 50 mg 08/10/24 11:07 Tramadol Hcl (*Crx) 50 Mg Tablet PO Q4H PRN Pain Rated 1-3 Valsartan 320 mg 08/11/24 09:00 08/11/24 08:11 Valsartan 160 Mg Tablet PO 320 mg QAM BRADLEY Administration Radiology Results: ITS Impressions Knee X-Ray 08/10/24 10:56 IMPRESSION: 1. Right total knee arthroplasty, negative for postoperative purposes. Labs Labs: Laboratory Results - last 24 hr 08/10/24 08/10/24 08/10/24 13:29 16:51 19:32 WBC RBC Hgb Hct MCV MCH MCHC RDW Plt Count MPV Immature Gran % (Auto) Neut % (Auto) Lymph % (Auto) [place] % (Auto) Eos % (Auto) Baso % (Auto) Lymph # (Auto) [place] # (Auto) Eos # (Auto) Baso # (Auto) Abs Immat Gran (auto) Absolute Neuts (auto) Absolute Nucleated RBC Nucleated RBC % Sodium Potassium Chloride Carbon Dioxide Anion Gap BUN Creatinine Estim Creat Clear Calc Estimated GFR Glucose POC Capillary Glucose 212 H 247 H 232 H Calcium 08/11/24 08/11/24 08/11/24 05:10 08:32 11:45 WBC 14.1 H RBC 4.42 L Hgb 13.2 L Hct 40.1 L MCV 90.7 MCH 29.9 MCHC 32.9 RDW 12.9 Plt Count 255 MPV 9.8 Immature Gran % (Auto) 0.4 Neut % (Auto) 70.1 Lymph % (Auto) 19.4 [place] % (Auto) 9.6 H Eos % (Auto) 0.1 Baso % (Auto) 0.4 Lymph # (Auto) 2.73 [place] # (Auto) 1.4 H Eos # (Auto) 0.0 Baso # (Auto) 0.1 Abs Immat Gran (auto) 0.06 H Absolute Neuts (auto) 9.9 H Absolute Nucleated RBC 0.000 Nucleated RBC % 0.0 Sodium 135 L Potassium 3.9 Chloride 100 Carbon Dioxide 25 Anion Gap 10 BUN 20 Creatinine 0.90 Estim Creat Clear Calc 97 Estimated GFR > 60 Glucose 192 H POC Capillary Glucose 230 H 185 H Calcium 8.5
== END 2024-08-11 12:40 | disposition home or self-care (01) ==
LOC: ANHSURGERY 06:07 → ANH2MED 11:46
PROVIDERS: PCP Internal Medicine Endocrinology, Diabetes & Metabolism; Visit Provider Orthopaedic Surgery
PROC: (CPT 27447; principal; 2024-08-10 07:30)
DX: M17.11 Unilateral primary osteoarthritis, right knee (principal); G89.18 Other acute postprocedural pain; E11.9 Type 2 diabetes mellitus without complications; I10 Essential (primary) hypertension; E78.5 Hyperlipidemia, unspecified; Z79.84 Long term (current) use of oral hypoglycemic drugs; Z87.891 Personal history of nicotine dependence; E66.9 Obesity, unspecified; Z68.37 Body mass index [BMI] 37.0-37.9, adult
CPT/HCPCS: 27447; 64447; 36415; 73560; 80048; 82948; 85025; 97110; 97116; 97161; 97165; 97530; 97535; A9270; C1713; C1776; J0171; J0690; J1171; J1815; J1885; J2003; J2250; J2270; J2704; J2795; J3370; J7120